=== PATIENT | male | born 1935 | race Caucasian/White ===

== ENCOUNTER 2018-03-19 08:57 | Emergency (ER) | payer OTHER, SELFPAY ==
[2018-03-19 09:22] VITALS: BP 138/89; PULSE 63; RESP 18; TEMP 36.4; O2SAT 93
--- NOTE | 2018-03-19 09:49 | DI.RAD_ITS ---
SYMPTOM/DIAGNOSIS: LATERAL HIP PAIN LEFT HIP AND PELVIS: Comparison is made with 08/01/16. There are again seen post surgical changes of a right hip replacement. In the left hip, minimal degenerative changes are noted. No acute fracture or dislocation is seen. The sacroiliac joints and symphysis pubis are intact. Moderate degenerative changes are seen in the lower lumbar spine. The soft tissues are unremarkable. IMPRESSION: No acute abnormality.
--- NOTE | 2018-03-19 09:51 | W.ED.GENAD ---
Discharge Plan Disposition Patient Disposition: HOME Condition: Fair Discharge Details Chief Complaint: Orthopedic Clinical Impression: Bursitis Primary Care Provider: Cecil Calixto ED Provider: Mellisa Mcpherson Home Meds and New Rx's Prescriptions: Continue mirtazapine 30 MG tablet,disintegrating 30 mg PO DAILY RF: 0 atorvastatin [Lipitor] 10 MG tablet 20 mg PO DAILY RF: 0 gabapentin 400 MG capsule 400 mg PO TID RF: 0 levothyroxine 137 MCG tablet 137 mcg PO DAILY@0730 RF: 0 quinapril [Accupril] 10 MG tablet 10 mg PO DAILY RF: 0 atenolol 50 MG tablet 50 mg PO DAILY RF: 0 alprazolam 0.25 MG tablet 0.25 mg PO QID RF: 0 ranitidine HCl [Zantac] 150 MG tablet 150 mg PO BID RF: 0 aspirin [Aspir-81] 81 mg Tablet,Delayed Release (Dr/Ec) 81 mg PO DAILY RF: 0 sertraline 100 mg Tablet 200 mg PO DAILY RF: 0 Discharge Instructions Instructions: Hip Bursitis (ED) Additional Instructions: Encourage rest ice to lateral aspect of your left hip. Tylenol and/or ibuprofen as needed for discomfort. You may try topical patches such as Salonpas or Lidoderm patches. Please keep your upcoming appointment with orthopedics. You may call them to see if they have any sooner availability. If you develop fever/chills, rash, redness, increased pain, difficulty ambulating or the new/worsening symptoms please seek care urgently once again Referrals: Cristian Masterson MD [ [facility] STAFF PHYSICIAN] - ([phone]) Cecil Calixto [Primary Care Provider] - Medical Decision Making Patient is an 82-year-old male presenting today with chief complaint of left hip pain. Initially, patient had been feeling that the pain was fairly generalized about the heaviness actually indicating the anterior aspect of the thigh is area of maximal discomfort. However, he does not experience any pain when immobilized. I did ambulate the patient about the room and at that point the patient was able to pinpoint the pain over the greater trochanter. Patient is full range of motion. No ecchymosis, erythema or deformity. No shortening or rotational deformity noted. Patient is point tender, and primarily concerned for bursitis. However, the patient does report that his underwent surgery recently and he has not been exerting himself more recently. I feel that with this change in activity level and his age imaging is appropriate. He has not taken anything as of yet for his discomfort. Plan to treat with Tylenol, ibuprofen and Lidoderm patch. Patient reports that he is no longer taking his Plavix, was advised to stop by physician. States he is currently taking baby aspirin daily X-ray reviewed by radiologist no acute bony abnormality noted Discussed findings of the imaging with the patient. Advised that this again, is likely bursitis. I encouraged use of anti-inflammatories as well as topical patches. Given the patient's age, I do not feel he should be on anti-inflammatories long-term but in the short interim this will greatly help with his discomfort and hopefully the source of his discomfort. He already has an appointment with orthopedics next week. Advised heat or ice to affected area. We discussed new/worsening symptoms when to seek care urgently once again. All the questions and concerns were addressed and he is in agreement with this plan. HPI General Mode of arrival: wheelchair. Date/Time Provider Initiated Documentation: 03/19/18 09:10. Limitations to Documentation: no limitations. Information obtained by: patient. History of Present Illness 82 year old M presents to the emergency department with the chief complaint of left hip pain, described as moderate, with intensity rated at 8. Quality is described as aching, and is localized to the left and lower extremity. Patient reports no radiation. Patient started experiencing this day(s) (4) and it has been constant. Immobilization improves symptom(s), (no pain when still) Movement worsens symptoms . Patient notes cough (reprots that he has chronic cough); denies chest pain, fever/chills, headaches, malaise, nausea/vomiting, rash, shortness of breath and weakness. Patient did receive the following treatments prior to arrival, none Related Data Home Medications Medication Instructions Recorded Confirmed atenolol 50 mg PO DAILY 11/17/12 03/19/18 levothyroxine 137 mcg PO DAILY@0730 11/17/12 03/19/18 quinapril [Accupril] 10 mg PO DAILY 11/17/12 03/19/18 atorvastatin [Lipitor] 20 mg PO DAILY tab-cap 05/27/13 03/19/18 gabapentin 400 mg PO TID tab-cap 05/27/13 03/19/18 mirtazapine 30 mg PO DAILY tab-cap 05/27/13 03/19/18 alprazolam 0.25 mg PO QID 07/17/13 03/19/18 ranitidine HCl [Zantac] 150 mg PO BID 07/17/13 03/19/18 aspirin [Aspir-81] 81 mg PO DAILY 03/19/18 03/19/18 sertraline 200 mg PO DAILY 03/19/18 03/19/18 Allergies Allergy/AdvReac Type Severity Reaction Status Date / Time quetiapine fumarate Allergy Severe Psychosis Unverified 03/19/18 09:32 [From Seroquel] General Stated Complaint: Orthopedic MUKESH: 3 Review of Systems Constitutional Reports as per HPI and Denies weakness Cardiovascular Reports as per HPI Respiratory Reports as per HPI Musculoskeletal Reports as per HPI, Denies numbness and Denies tingling Integumentary/Breasts Reports as per HPI Neurologic Denies numbness, Denies tingling and Denies weakness PFSH Family History Mother Heart disease Father Heart disease Other Personal history of malignant neoplasm Medical History Anxiety Aortic valve stenosis Chronic obstructive lung disease Depression Essential hypertension Hypothyroidism Osteoarthritis Polymyalgia rheumatica Polyp of colon Tardive dyskinesia Social History Smoking/Tobacco Use Status: Current every day Surgical History Appendectomy Excision, Pilonidal Cyst Thyroid Exam Const General: cooperative, healthy appearing, comfortable, no acute distress and well developed Nutritional Appearance: average body habitus and well nourished Orientation: alert and awake Resp Effort & Inspection: normal respiratory effort, able to speak in complete sentences and no respiratory distress Auscultation: clear to auscultation bilaterally, no rales, no rhonchi and no wheezes Cardio Rate: regular rate Rhythm: regular rhythm Heart Sounds: murmur systolic GI Inspection: normal to inspection Palpation: no guarding and nontender Skin General skin exam: no rashes or lesions noted Lesions: no lesions Rashes: no rashes Trauma: no lacerations or abrasions Wounds: no wounds Neuro General: alert and awake Cognition: normal cognition Speech: speech normal Gait: normal gait Motor: muscle tone normal throughout and strength 5/5 throughout Sensory Exam: no sensory deficits noted Extrem Left lower extremity: full ROM, normal capillary refill, no joint enlargement and hip/thigh Details: tenderness Location: of the hip (point tender over the greater trochanter) Location: laterally and normal ROM; no swelling, no abrasions, no lacerations, no ecchymosis, no crepitus, no deformity and no unusual warmth; no cyanosis and no edema Psych Appearance: grossly normal and well kempt Mental Status: mental status grossly normal Speech and Movement: speech and movement normal Course Vital Signs Temperature 36.4 C L 03/19/18 09:22 Pulse 63 03/19/18 09:22 Respiratory Rate 18 03/19/18 09:22 Blood Pressure 138/89 03/19/18 09:22 Pulse Oximetry 93 L 03/19/18 09:22 Temperature 36.4 C L 03/19/18 09:22 Temperature Source Temporal Artery Scan 03/19/18 09:22 Pulse 63 03/19/18 09:22 Respiratory Rate 18 03/19/18 09:22 Respiratory Effort Non-Labored 03/19/18 09:26 Blood Pressure 138/89 03/19/18 09:22 Blood Pressure Position Sitting 03/19/18 09:22 Pulse Oximetry 93 L 03/19/18 09:22 Oxygen Delivery Method Room Air 03/19/18 09:22 Oxygen Flow Rate 0 03/19/18 09:22 Pain Level 8 03/19/18 09:28 Comment 03/19/18 09:22
[2018-03-19] MEDS: Acetaminophen 325 MG TAB 650 MG PO (09:55)
[2018-03-19] MEDS: Ibuprofen 600 MG TAB PO (09:55)
[2018-03-19] MEDS: Lidocaine 5% Patch 1 PATCH TP (09:56)
--- NOTE | 2018-03-19 09:59 | ED.GENADUL_ITS ---
Discharge Plan Disposition Patient Disposition: HOME Condition: Fair Discharge Details Chief Complaint: Orthopedic Clinical Impression: Bursitis Primary Care Provider: Cecil Calixto ED Provider: Mellisa Mcpherson Home Meds and New Rx's Prescriptions: Continue mirtazapine 30 MG tablet,disintegrating 30 mg PO DAILY RF: 0 atorvastatin [Lipitor] 10 MG tablet 20 mg PO DAILY RF: 0 gabapentin 400 MG capsule 400 mg PO TID RF: 0 levothyroxine 137 MCG tablet 137 mcg PO DAILY@0730 RF: 0 quinapril [Accupril] 10 MG tablet 10 mg PO DAILY RF: 0 atenolol 50 MG tablet 50 mg PO DAILY RF: 0 alprazolam 0.25 MG tablet 0.25 mg PO QID RF: 0 ranitidine HCl [Zantac] 150 MG tablet 150 mg PO BID RF: 0 aspirin [Aspir-81] 81 mg Tablet,Delayed Release (Dr/Ec) 81 mg PO DAILY RF: 0 sertraline 100 mg Tablet 200 mg PO DAILY RF: 0 Discharge Instructions Instructions: Hip Bursitis (ED) Additional Instructions: Encourage rest ice to lateral aspect of your left hip. Tylenol and/or ibuprofen as needed for discomfort. You may try topical patches such as Salonpas or Lidoderm patches. Please keep your upcoming appointment with orthopedics. You may call them to see if they have any sooner availability. If you develop fever/chills, rash, redness, increased pain, difficulty ambulating or the new/worsening symptoms please seek care urgently once again Referrals: Cristian Masterson MD [ [facility] STAFF PHYSICIAN] - ([phone]) Cecil Calixto [Primary Care Provider] - Medical Decision Making Patient is an 82-year-old male presenting today with chief complaint of left hip pain. Initially, patient had been feeling that the pain was fairly generalized about the heaviness actually indicating the anterior aspect of the thigh is area of maximal discomfort. However, he does not experience any pain when immobilized. I did ambulate the patient about the room and at that point the patient was able to pinpoint the pain over the greater trochanter. Patient is full range of motion. No ecchymosis, erythema or deformity. No shortening or rotational deformity noted. Patient is point tender, and primarily concerned for bursitis. However, the patient does report that his underwent surgery recently and he has not been exerting himself more recently. I feel that with this change in activity level and his age imaging is appropriate. He has not taken anything as of yet for his discomfort. Plan to treat with Tylenol, ibuprofen and Lidoderm patch. Patient reports that he is no longer taking his Plavix, was advised to stop by physician. States he is currently taking baby aspirin daily X-ray reviewed by radiologist no acute bony abnormality noted Discussed findings of the imaging with the patient. Advised that this again, is likely bursitis. I encouraged use of anti-inflammatories as well as topical patches. Given the patient's age, I do not feel he should be on anti- inflammatories long-term but in the short interim this will greatly help with his discomfort and hopefully the source of his discomfort. He already has an appointment with orthopedics next week. Advised heat or ice to affected area. We discussed new/worsening symptoms when to seek care urgently once again. All the questions and concerns were addressed and he is in agreement with this plan. HPI General Mode of arrival: wheelchair . Date/Time Provider Initiated Documentation: 03/19/18 09:10 . Limitations to Documentation: no limitations . Information obtained by: patient . History of Present Illness 82 year old M presents to the emergency department with the chief complaint of left hip pain, described as moderate, with intensity rated at 8. Quality is described as aching, and is localized to the left and lower extremity. Patient reports no radiation. Patient started experiencing this day(s) (4) and it has been constant. Immobilization improves symptom(s), (no pain when still) Movement worsens symptoms . Patient notes cough (reprots that he has chronic cough); denies chest pain, fever/chills, headaches, malaise, nausea/ vomiting, rash, shortness of breath and weakness. Patient did receive the following treatments prior to arrival, none Related Data Home Medications Medication Instructions Recorded Confirmed atenolol 50 mg PO DAILY 11/17/12 03/19/18 levothyroxine 137 mcg PO DAILY@0730 11/17/12 03/19/18 quinapril [Accupril] 10 mg PO DAILY 11/17/12 03/19/18 atorvastatin [Lipitor] 20 mg PO DAILY tab-cap 05/27/13 03/19/18 gabapentin 400 mg PO TID tab-cap 05/27/13 03/19/18 mirtazapine 30 mg PO DAILY tab-cap 05/27/13 03/19/18 alprazolam 0.25 mg PO QID 07/17/13 03/19/18 ranitidine HCl [Zantac] 150 mg PO BID 07/17/13 03/19/18 aspirin [Aspir-81] 81 mg PO DAILY 03/19/18 03/19/18 sertraline 200 mg PO DAILY 03/19/18 03/19/18 Allergies Allergy/AdvReac Type Severity Reaction Status Date / Time quetiapine fumarate Allergy Severe Psychosis Unverified 03/19/18 09:32 [From Seroquel] General Stated Complaint: Orthopedic MUKESH: 3 Review of Systems Constitutional Reports as per HPI and Denies weakness Cardiovascular Reports as per HPI Respiratory Reports as per HPI Musculoskeletal Reports as per HPI, Denies numbness and Denies tingling Integumentary/Breasts Reports as per HPI Neurologic Denies numbness, Denies tingling and Denies weakness PFSH Family History Mother Heart disease Father Heart disease Other Personal history of malignant neoplasm Medical History Anxiety Aortic valve stenosis Chronic obstructive lung disease Depression Essential hypertension Hypothyroidism Osteoarthritis Polymyalgia rheumatica Polyp of colon Tardive dyskinesia Social History Smoking/Tobacco Use Status: Current every day Surgical History Appendectomy Excision, Pilonidal Cyst Thyroid Exam Const General: cooperative, healthy appearing, comfortable, no acute distress and well developed Nutritional Appearance: average body habitus and well nourished Orientation: alert and awake Resp Effort & Inspection: normal respiratory effort, able to speak in complete sentences and no respiratory distress Auscultation: clear to auscultation bilaterally, no rales, no rhonchi and no wheezes Cardio Rate: regular rate Rhythm: regular rhythm Heart Sounds: murmur systolic GI Inspection: normal to inspection Palpation: no guarding and nontender Skin General skin exam: no rashes or lesions noted Lesions: no lesions Rashes: no rashes Trauma: no lacerations or abrasions Wounds: no wounds Neuro General: alert and awake Cognition: normal cognition Speech: speech normal Gait: normal gait Motor: muscle tone normal throughout and strength 5/5 throughout Sensory Exam: no sensory deficits noted Extrem Left lower extremity: full ROM, normal capillary refill, no joint enlargement and hip/thigh Details: tenderness Location: of the hip (point tender over the greater trochanter) Location: laterally and normal ROM; no swelling, no abrasions, no lacerations, no ecchymosis, no crepitus, no deformity and no unusual warmth; no cyanosis and no edema Psych Appearance: grossly normal and well kempt Mental Status: mental status grossly normal Speech and Movement: speech and movement normal Course Vital Signs Temperature 36.4 C L 03/19/18 09:22 Pulse 63 03/19/18 09:22 Respiratory Rate 18 03/19/18 09:22 Blood Pressure 138/89 03/19/18 09:22 Pulse Oximetry 93 L 03/19/18 09:22 Temperature 36.4 C L 03/19/18 09:22 Temperature Source Temporal Artery Scan 03/19/18 09:22 Pulse 63 03/19/18 09:22 Respiratory Rate 18 03/19/18 09:22 Respiratory Effort Non-Labored 03/19/18 09:26 Blood Pressure 138/89 03/19/18 09:22 Blood Pressure Position Sitting 03/19/18 09:22 Pulse Oximetry 93 L 03/19/18 09:22 Oxygen Delivery Method Room Air 03/19/18 09:22 Oxygen Flow Rate 0 03/19/18 09:22 Pain Level 8 03/19/18 09:28 Comment 03/19/18 09:22
== END 2018-03-19 10:57 | disposition home or self-care (01) ==
PROVIDERS: Emergency Provider Physician Assistant; PCP Internal Medicine Sleep Medicine
DX: M70.72 Other bursitis of hip, left hip (principal)
CPT/HCPCS: 99283; 73502

== ENCOUNTER → 2018-03-27 10:04 | Outpatient (BNVA) | payer OTHER, SELFPAY | PROVIDERS: PCP Internal Medicine Sleep Medicine; Referring Provider Internal Medicine Sleep Medicine; Visit Provider Orthopaedic Surgery | DX: M70.62 Trochanteric bursitis, left hip (principal); J44.9 Chronic obstructive pulmonary disease, unspecified; I10 Essential (primary) hypertension | CPT/HCPCS: 99201; 99213 ==

== ENCOUNTER 2019-04-21 08:54 | Emergency (ER) | payer OTHER, SELFPAY ==
[2019-04-21 09:00] VITALS: BP 174/79; PULSE 74; RESP 16; TEMP 36.2; O2SAT 95
[2019-04-21] MEDS: Benzocaine 20% Gel 30 GM JAR MM (09:15)
--- NOTE | 2019-04-21 09:17 | ED.GENADUL_ITS ---
Discharge Plan Disposition Patient Disposition: HOME Condition: Fair Discharge Details Chief Complaint: DentalOral Clinical Impression: Dental infection Primary Care Provider: Spike Borjas ED Provider: eMllisa Mcpherson Home Meds and New Rx's Prescriptions: New amoxicillin-pot clavulanate [Augmentin] 875-125 mg tablet 1 tab PO BID 7 Days Qty: 14 RF: 0 Continued mirtazapine 30 MG tablet,disintegrating 30 mg PO DAILY RF: 0 atorvastatin [Lipitor] 10 MG tablet 20 mg PO DAILY RF: 0 gabapentin 400 MG capsule 400 mg PO TID RF: 0 levothyroxine 137 MCG tablet 137 mcg PO DAILY@0730 RF: 0 quinapril [Accupril] 10 MG tablet 10 mg PO DAILY RF: 0 atenolol 50 MG tablet 50 mg PO DAILY RF: 0 alprazolam 0.25 MG tablet 0.25 mg PO QID RF: 0 ranitidine HCl [Zantac] 150 MG tablet 150 mg PO BID RF: 0 aspirin [Aspir-81] 81 mg Tablet,Delayed Release (Dr/Ec) 81 mg PO DAILY RF: 0 sertraline 100 mg Tablet 200 mg PO DAILY RF: 0 Discharge Instructions Instructions: Dental Abscess (ED) Additional Instructions: Encourage hydration. You may use Tylenol and/or ibuprofen as needed for discomfort. You may continue to use the Hurricaine gel topically every 6 hours as needed. Please take the antibiotics as prescribed. Even if symptoms improve, please take the entire course. You have an appointment with your dentist on 04/29/19 at 12:15PM. If you cannot make this appointment, please call the office. If you develop fever/chills, increased pain, increased swelling or other new/worsening symptoms please seek care urgently once again. Referrals: Spike Borjas [Primary Care Provider] - Medical Decision Making Patient is an 83 year old male with hx of anxiety, aortic valve stenosis, COPD, depression, HTN, hypothyroidism, presenting today with c/c of left lower dental pain. Reports that pain began 4 days ago and has progressively been worsening. Began noting swelling yesterday. Patient has lower dentures but still has intact, shortened and darkened teeth intermitently in lower jaw under the dentures. He indicates cassidy #19 tooth as area of pain. Patient has soft tissue swelling along he buccal side. No lingual sided pain or swelling, oropharynx otherwise normal. Patient appears nontoxic. No area of fluctuance on exam or pocket of fluid noted on US. Plan to place patient on antibiotics. I will co ntact dentist regarding overriding denture and if he should continue with this. Contacted dentist, they advised that if patient stopped using his partial, it may not be able to fit within a few days and for patient to continue if tolerable. Plan to begin the patient on antibiotics. Discussed this plan with the patient who voiced understanding and is in agreement. Patient specifically questioned pain medication, however, I am concerned regarding the patient's age and adverse reactions with opiates. I feel the patient would better be served with Tylenol, ibuprofen and topical analgesics such as Hurricaine gel. He was given her cane gel here. Encourage hydration. He was given return precautions. All his questions and concerns were addressed and he is in agreement this plan. 04/29/19 at 12:15PM [facility] General Mode of arrival: ambulatory . Date/Time Provider Initiated Documentation: 04/21/19 08:59 . Limitations to Documentation: no limitations . Information obtained by: patient and RN notes reviewed . History of Present Illness 83 year old M presents to the emergency department with the chief complaint of left lower dental pain, described as moderate, with intensity rated at 7. Quality is described as aching, and is localized to the face and mouth. Patient reports no radiation. Patient started experiencing this day(s) (4) and it has been constant. No relieving factors improve symptom(s), No exacerbating factors reported . Patient notes no other symptoms.; denies fever/chills, headaches, loss of appetite, nausea/vomiting and rash. Patient did receive the following treatments prior to arrival, none Related Data Home Medications Medication Instructions Recorded Confirmed atenolol 50 mg PO DAILY 11/17/12 03/27/18 levothyroxine 137 mcg PO DAILY@0730 11/17/12 03/27/18 quinapril [Accupril] 10 mg PO DAILY 11/17/12 03/27/18 atorvastatin [Lipitor] 20 mg PO DAILY tab-cap 05/27/13 03/27/18 gabapentin 400 mg PO TID tab-cap 05/27/13 03/27/18 mirtazapine 30 mg PO DAILY tab-cap 05/27/13 03/27/18 alprazolam 0.25 mg PO QID 07/17/13 03/27/18 ranitidine HCl [Zantac] 150 mg PO BID 07/17/13 03/27/18 aspirin [Aspir-81] 81 mg PO DAILY 03/19/18 03/27/18 sertraline 200 mg PO DAILY 03/19/18 03/27/18 amoxicillin-pot clavulanate 1 tab PO BID 7 Days #14 tab 04/21/19 [Augmentin] Previous Rx's Medication Instructions Recorded amoxicillin-pot clavulanate 1 tab PO BID 7 Days #14 tab 04/21/19 [Augmentin] Allergies Allergy/AdvReac Type Severity Reaction Status Date / Time quetiapine fumarate Allergy Severe Psychosis Verified 04/21/19 09:02 [From Seroquel] General Stated Complaint: DentalOral MUKESH: 5 Review of Systems Constitutional Constitutional: Reports as per HPI, Denies chills, Denies fatigue, Denies fever(s), Denies headache(s) and Denies poor appetite Eyes Eyes: Denies change in vision and Denies irritation ENT Ears, Nose, Mouth, and Throat: Reports as per HPI, Reports dental pain, Denies dysphagia, Denies dizziness, Denies dry mouth, Denies ear discharge, Denies otalgia, Reports facial pain, Denies headache(s), Denies hoarseness, Denies lip swelling, Denies nasal congestion, Denies odynophagia and Denies sore throat Cardiovascular Cardiovascular: Reports as per HPI and Denies chest pain Respiratory Respiratory: Reports as per HPI and Denies cough Gastrointestinal Gastrointestinal: Reports as per HPI, Denies dysphagia, Denies nausea, Denies odynophagia and Denies vomiting Integumentary/Breasts Skin/Breast: Reports as per HPI, Denies erythema, Denies rash and Denies skin pain Neurologic Neurologic: Reports as per HPI, Denies dizziness and Denies headache(s) Endocrine Endocrine: Denies fatigue Allergic/Immunologic Allergic/Immunologic: Denies lip swelling PFSH Family History Mother Heart disease Father Heart disease Other Personal history of malignant neoplasm Social History Smoking/Tobacco Use Status: Current every day Alcohol Intake: never Drug use: Never Substance use type: does not use Do you feel safe at home: Yes Do you feel safe in your relationship?: Yes Exam Const General: cooperative, healthy appearing, comfortable, no acute distress, well developed and well groomed Nutritional Appearance: average body habitus and well nourished Orientation: alert and awake [facility] Head: normal to inspection, normocephalic and atraumatic Ears: hearing grossly normal bilaterally, external ears normal and TM's normal bilaterally General nose exam: external nose normal and nares normal Face and sinus: abnormal facial exam, sinuses nontender and face asymmetric (Left lower facial swelling) Face images: 1. Area of facial swelling, no fluctuance. No pocket of fluid noted on US. No erythema or warmth. No opening. Corresponds with pain at the #14 tooth Mouth: lip normal and tongue normal Teeth and gingiva: poor dentition Throat: posterior oropharynx normal, tonsils normal and uvula midline Eyes General: appearance normal, both eyes and all related structures Neck Neck: normal visual inspection, full ROM, no lymphadenopathy, supple and no anterior neck swelling Resp Effort & Inspection: normal respiratory effort, able to speak in complete sentences and no respiratory distress Auscultation: clear to auscultation bilaterally, no rales, no rhonchi and no wheezes Cardio Rate: regular rate Rhythm: regular rhythm Heart Sounds: S1 normal and S2 normal Skin General skin exam: no rashes or lesions noted Trauma: no lacerations or abrasions Neuro General: alert and awake Cognition: normal cognition Speech: speech normal Gait: normal gait Psych Appearance: grossly normal and well kempt Mental Status: mental status grossly normal Speech and Movement: speech and movement normal Course Vital Signs Vital signs: Vital Signs Temperature 36.2 C L 04/21/19 09:00 Pulse 74 04/21/19 09:00 Respiratory Rate 16 04/21/19 09:00 Blood Pressure 174/79 H 04/21/19 09:00 Pulse Oximetry 95 04/21/19 09:00 Temperature 36.2 C L 04/21/19 09:00 Temperature Source Temporal Artery Scan 04/21/19 09:00 Pulse 74 04/21/19 09:00 Respiratory Rate 16 04/21/19 09:00 Respiratory Effort Non-Labored 04/21/19 09:00 Blood Pressure 174/79 H 04/21/19 09:00 Blood Pressure Position Sitting 04/21/19 09:00 Pulse Oximetry 95 04/21/19 09:00 Oxygen Delivery Method Room Air 04/21/19 09:00 Oxygen Flow Rate 0 04/21/19 09:00 Pain Level 7 04/21/19 09:00
== END 2019-04-21 09:50 | disposition home or self-care (01) ==
PROVIDERS: Emergency Provider Physician Assistant; PCP Internal Medicine
DX: R68.84 Jaw pain (principal); K04.7 Periapical abscess without sinus; R22.0 Localized swelling, mass and lump, head; J44.9 Chronic obstructive pulmonary disease, unspecified; F17.210 Nicotine dependence, cigarettes, uncomplicated; I10 Essential (primary) hypertension
CPT/HCPCS: 99283

== ENCOUNTER 2019-11-05 10:20 | Outpatient (CLI) | payer OTHER, SELFPAY ==
--- NOTE | 2019-11-05 10:00 | DI.RAD_ITS ---
EXAM: XR LUMBAR SPINE AP, LAT CLINICAL HISTORY: leg pain. TECHNIQUE: 2D digital imaging was performed. COMPARISON: CR RT HIP COMPLETE AP PELVIS from 08/01/2016 CR CHEST 2 VIEWS PA,LAT from 01/09/2017 CR XR hip LT complete AP pelvis from 03/19/2018 FINDINGS: BONES: There is a stable mild compression of the superior endplate of L1. Endplate osteophytes are s een throughout. There is moderate narrowing of the L4-5 disc space and moderate to severe narrowing of the L5-S1 disc space. There are prominent facet joint degenerative changes at L4-5 and L5-S1. Th e aorta and proximal iliac arteries are calcified and appear normal in diameter. A right hip prosthe sis is seen. Degenerative changes are also noted at the inferior SI joints. ALIGNMENT: Lumbar spinal alignment is within normal limits. SOFT TISSUE: Normal. IMPRESSION: Stable mild L1 compression fracture. Degenerative disc changes and facet degenerative changes, great est at L4-5 and L5-S1. DATA REPOSITORY: RADIATION DOSE DELIVERED:
== END 2019-11-05 10:40 ==
PROVIDERS: PCP Internal Medicine; Referring Provider Internal Medicine; Visit Provider Orthopaedic Surgery
DX: M47.817 Spondylosis without myelopathy or radiculopathy, lumbosacral region (principal); M51.37 Other intervertebral disc degeneration, lumbosacral region; M79.604 Pain in right leg; M79.605 Pain in left leg; M48.56XD Collapsed vertebra, not elsewhere classified, lumbar region, subsequent encounter for fracture with routine healing; M48.00 Spinal stenosis, site unspecified; I10 Essential (primary) hypertension; J44.9 Chronic obstructive pulmonary disease, unspecified; F17.210 Nicotine dependence, cigarettes, uncomplicated; F32.9 Major depressive disorder, single episode, unspecified
CPT/HCPCS: 99214; 72100

== ENCOUNTER 2019-12-23 09:27 | Emergency (ER) | payer OTHER, SELFPAY ==
--- NOTE | 2019-12-23 09:31 | W.ED.GENAD ---
Discharge Plan Disposition Patient Disposition: HOME Condition: Stable Discharge Details Chief Complaint: GenMedical Clinical Impression: Ambulatory dysfunction Primary Care Provider: Spike Borjas ED Provider: Mellisa Mcpherson Home Meds and New Rx's Prescriptions: Continued mirtazapine 30 MG tablet,disintegrating 15 mg PO .QHS RF: 0 atorvastatin [Lipitor] 10 MG tablet 20 mg PO DAILY RF: 0 gabapentin 400 MG capsule 400 mg PO TID RF: 0 levothyroxine 137 MCG tablet 175 mcg PO DAILY@0730 RF: 0 atenolol 50 MG tablet 25 mg PO DAILY RF: 0 ranitidine HCl [Zantac] 150 MG tablet 150 mg PO BID RF: 0 sertraline 100 mg Tablet 200 mg PO DAILY RF: 0 clonazepam 1 mg tablet 1 mg PO BID RF: 0 fluticasone propionate 50 mcg/actuation spray,suspension 2 spray INTRANASAL DAILY RF: 0 Bevespi Aerosphere 9-4.8 mcg HFA aerosol inhaler 2 puff INHALATION BID RF: 0 Discharge Instructions Additional Instructions: Please continue to use your walker. Take your time, particularly when going from a sitting to standing position, and make sure steady yourself before beginning to walk. Please consider physical therapy has had been referred by primary care. We will continue seen contact your primary care. If you do not hear from them in the next day or 2, please call to discuss referral to MRI. Ref[place] been [place] [facility] [place] If you develop fever/chills, increased pain, sensation changes, change in your bowel or bladder habits or other new/worsening symptoms please seek care urgently once again. Referrals: Spike Borjas [Primary Care Provider] - Discharge Data Discharge Date/Time-TO BE ENTERED AT DEPARTURE: 12/23/19 12:00 Medical Decision Making <KATIA Muniz - Last Filed: 12/24/19 23:03> Patient is a pleasant 83 year old male, accompanied by his , with c/c of gait instability. They report that patient has had difficulty walking, particularly long distances, for the past 2 years. They state that this has worsening over the past month. He states that while he may need to steady himself when he first gets up, he typically does well for short distances. However, after walking for a more extended time, such as walking in a store or walking in from the parking lot, his legs will get fatigued. He denies any pain in his legs. No change in bowel or bladder habits. States that he was seen by orthopedics with negative low back x-rays. is concerned that his posture has been worsening over time. He was seen by his PCP for this last month. They present today requesting MRI. They advise that they contacted PCP who recommended he come to ED for MR with plan to then refer to medical staff specialist. Patient had been referred to PT but has not been going secondary to his difficulty with mobility. Reviewed previous records. Patient was seen by orthopedics 2 months ago. At that time, Ulysses has had bilateral leg pain that is been going on for many months now, and it appears to be coming from his spine. This is further proven by the fact that when he flexes at the waist in a hunched over position he gets some relief from his symptoms. He also may have exacerbation of pain symptoms from his depression. It is difficult to keep him on task during this visit as he is infatuated by how unhappy he is in his current situation. Given this added complication, Dr. Masterson feels as though a medication such as Cymbalta might be a good option in order to not only help him with his depression, this can also help with pain that may be a manifestation of his depression. Dr. Masterson suggested that he talk to his PCP Dr. Borjas [place] [facility] [place] about starting a medication like this. He will follow-up with us as needed. On exam, patient is resting comfortably. He is reading in his paper. He is good mobility about the bed. No midline or paraspinal tenderness. He does indicate the right lower spine is area of discomfort but ambulance with palpation or range of motion. He has negative straight leg raise bilaterally. 5 out of 5 strength. No saddle paresthesias. Normal reflexes. Patient was able to ambulate to the bathroom unassisted with a walker. Does quite well with this. Does feel more steady with a walker given here as it does not have wheels. His does report that she will purchase one like this for him. We discussed that this point, there is no emergent change in his symptoms. He does seem to be doing fairly well at home despite his deterioration. Has been trying to set up safeguards at home. Is doing quite well with walker today. Plan to consult with the patient's primary care provider to discuss recommendation of emergent MRI. Was unable to reach the patient's primary care provider. I did call multiple times at [facility] without success. Patient is not requiring any medications for discomfort. He is remained comfortable. We did discuss continuing to wait versus discharge home and close follow-up. He would prefer discharge home at this point. Patient and I did discuss treatment options. We discussed pain management techniques. I did encourage he reconsider physical therapy is likely be of great benefit to him. He was given strict return precautions. We did discuss fall prevention techniques. Encourage close follow-up with primary care. Will refer to spine center at [facility] where they have wanted to be seen. All of their questions and concerns were addressed and they are in agreement with this plan. After the patient's discharge, I was able to speak with patient's primary care provider's nurse. They will refer patient for an MRI. I have also referred him to the spine center at [facility]. <Frantz Pak MD - Last Filed: 12/23/19 10:24> I had a [id number] encounter with the patient. I evaluated the patient. I discussed case with RADIO COMMUNICATION COORDINATOR/PA and I reviewed RADIO COMMUNICATION COORDINATOR/PA note and agree with note as documented. HPI <KATIA Muniz - Last Filed: 12/24/19 23:03> General Mode of arrival: wheelchair. Date/Time Provider Initiated Documentation: 12/23/19 09:31. Limitations to Documentation: no limitations. Information obtained by: patient, family (), RN notes reviewed and old records reviewed. HPI Narrative: Patient is a pleasant 83 year old male, accompanied by his , with c/c of difficulty with ambulation. STates that this started about 2 years ago and has been progressively worsening. states that it has been a much more notable decline over the past month. Patient states that when he first stands he has difficulty with his balance. Once he is able to stabilize himself, he is able to walk. Has been using a walker x 1 month around his home. STates that with long distances his legs become fatigued but denies any pain in his legs. No numbness or tingling. Feels better when hunched over some which is concerning for his . Has been seen by PCP who recommended PT. However, as the patient has not been walking well patient and did not feel that PT was appropriate for him. They were also recommended antidepressant by orthopedics but patient and family did not feel that this was an accurate diagnosis. states that she sees daily decline. Related Data Home Medications Medication Instructions Recorded Confirmed atenolol 25 mg PO DAILY 11/17/12 12/23/19 levothyroxine 175 mcg PO DAILY@0730 11/17/12 12/23/19 atorvastatin [Lipitor] 20 mg PO DAILY tab-cap 05/27/13 12/23/19 gabapentin 400 mg PO TID tab-cap 05/27/13 12/23/19 mirtazapine 15 mg PO .QHS tab-cap 05/27/13 12/23/19 ranitidine HCl [Zantac] 150 mg PO BID 07/17/13 12/23/19 sertraline 200 mg PO DAILY 03/19/18 12/23/19 Bevespi Aerosphere 2 puff INHALATION BID 12/23/19 12/23/19 clonazepam 1 mg PO BID 12/23/19 12/23/19 fluticasone propionate 2 spray INTRANASAL DAILY 12/23/19 12/23/19 Allergies Allergy/AdvReac Type Severity Reaction Status Date / Time quetiapine fumarate Allergy Severe Psychosis Verified 12/23/19 09:43 [From Seroquel] General MUKESH: 5 Review of Systems <KATIA Muniz - Last Filed: 12/24/19 23:03> Constitutional Constitutional: Reports as per HPI, Denies chills, Denies fatigue, Denies fever(s), Reports frequent falls, Denies headache(s) and Reports weakness (Noted with prolonged times of ambulation) Eyes Eyes: Denies change in vision ENT Ears, Nose, Mouth, and Throat: Denies headache(s) Cardiovascular Cardiovascular: Denies chest pain, Denies dyspnea and Denies dyspnea on exertion Respiratory Respiratory: Denies cough, Denies dyspnea and Denies dyspnea on exertion Gastrointestinal Gastrointestinal: Denies abdominal pain, Denies change in bowel habits and Denies fecal incontinence Genitourinary Genitourinary: Reports as per HPI, Denies urinary hesitancy and Denies urinary incontinence Musculoskeletal Musculoskeletal: Reports as per HPI, Reports abnormal gait, Reports back pain, Denies muscle weakness, Denies numbness, Denies radiating pain into limb, Reports stiffness and Denies tingling Integumentary/Breasts Skin/Breast: Reports as per HPI and Denies rash Neurologic Neurologic: Reports as per HPI, Reports abnormal gait, Reports frequent falls, Denies headache(s), Denies localized weakness, Denies numbness, Denies radicular pain, Denies sensory deficit, Denies tingling, Denies paresthesias and Reports weakness (Noted with prolonged times of ambulation) Endocrine Endocrine: Denies fatigue PFSH <KATIA Muniz - Last Filed: 12/24/19 23:03> Medical History (Updated 12/23/19 @ 11:34 by KATIA Muniz) Anxiety Aortic valve stenosis Chronic obstructive lung disease Depression Essential hypertension Hypothyroidism Osteoarthritis Polymyalgia rheumatica Polyp of colon Tardive dyskinesia Surgical History Appendectomy Excision, Pilonidal Cyst Thyroid Family History Mother Heart disease Father Heart disease Other Personal history of malignant neoplasm Social History Smoking/Tobacco Use Status: Current every day Tobacco Type: cigarettes Smoking packs per day: 0.5 Smoking cigarettes per day: 10.0 Alcohol Intake: never Drug use: Never Substance use type: does not use Current gender identity: male Do you feel safe at home: Yes Do you feel safe in your relationship?: Yes Exam <KATIA Muniz - Last Filed: 12/24/19 23:03> Const General: cooperative, healthy appearing, comfortable, no acute distress, well developed and well groomed Nutritional Appearance: average body habitus and well nourished Orientation: alert and awake Eyes General: appearance normal, both eyes and all related structures Neck Neck: normal visual inspection, full ROM, no lymphadenopathy and no meningeal signs Resp Effort & Inspection: normal respiratory effort and able to speak in complete sentences Auscultation: clear to auscultation bilaterally, no rales, no rhonchi and no wheezes Cardio Rate: regular rate Rhythm: regular rhythm Heart Sounds: S1 normal and S2 normal Back/Spine/Pelvis Back: no CVA tenderness Cervical Spine: normal cervical lordosis, cervical ROM normal, No cervical spinal tenderness and No step off deformity Thoracic/Lumbar Spine: thoracic and lumbar spine normal to inspection, straight leg raise negative bilaterally, No bend over test abnormal, No pain with thoraco-lumbar ROM, No paraspinal tenderness, No thoraco-lumbar ROM limited, No thoraco-lumbar spasm, No thoracic spinal tenderness, No lumbar spinal tenderness and No straight leg raise positive Pelvis: no pain with anterior-posterior compression and no pain with lateral compression Sacroiliac joints: bilaterally nontender Sacrum: no tenderness Skin General skin exam: no rashes or lesions noted Neuro General: patient alert and patient awake Cognition: normal cognition Speech: speech normal Gait: gait abnormal (ambulates well, unassisted with a walker) Motor: muscle tone normal throughout, strength 5/5 throughout, no movement abnormalities noted and no fasciculations Sensory Exam: no sensory deficits noted (no saddle paresthesias) DTR's: Rt Patellar: 2+, Lt Patellar: 2+, Rt Ankle: 2+ and Lt Ankle: 2+ Extrem General: normal to inspection, full ROM, capillary refill normal, no joint enlargement, no pedal edema, no calf tenderness and normal gait Psych Appearance: grossly normal and well kempt Mental Status: mental status grossly normal Speech and Movement: speech and movement normal
[2019-12-23 09:38] VITALS: BP 105/69; PULSE 72; RESP 16; TEMP 36.5; O2SAT 94
[2019-12-23 11:06] VITALS: BP 110/74; PULSE 82; RESP 20; O2SAT 96
--- NOTE | 2019-12-24 09:15 | CMPROGNOTE_ITS ---
- If Service Date Differs Date of service: 12/24/19 Time of Service: 09:15 Care Management Progress Note At the request of ED provider, CM coordinates a referral [place] [facility].
--- NOTE | 2019-12-24 09:15 | PDOC.ERCMPRO ---
- If Service Date Differs Date of service: 12/24/19 Time of Service: 09:15 Care Management Progress Note At the request of ED provider, CM coordinates a referral [place] [facility] [place] [place] [facility].
== END 2019-12-23 12:00 | disposition home or self-care (01) ==
PROVIDERS: Emergency Provider Physician Assistant; PCP Internal Medicine
DX: R26.81 Unsteadiness on feet (principal); I10 Essential (primary) hypertension; J44.9 Chronic obstructive pulmonary disease, unspecified; F17.210 Nicotine dependence, cigarettes, uncomplicated
CPT/HCPCS: 99282; 99283

== ENCOUNTER → 2020-02-02 13:04 | Outpatient (BNVA) | payer OTHER, SELFPAY | PROVIDERS: PCP Internal Medicine; Referring Provider Internal Medicine; Visit Provider Nurse Practitioner Gerontology | DX: N40.2 Nodular prostate without lower urinary tract symptoms (principal); R97.20 Elevated prostate specific antigen [PSA]; I10 Essential (primary) hypertension | CPT/HCPCS: 99204; 99215 ==

== ENCOUNTER → 2020-02-23 10:17 | Outpatient (BNVA) | payer OTHER, SELFPAY | PROVIDERS: PCP Internal Medicine; Referring Provider Internal Medicine; Visit Provider Urology | DX: N40.2 Nodular prostate without lower urinary tract symptoms (principal); R97.20 Elevated prostate specific antigen [PSA] | CPT/HCPCS: 99213; 99442 ==

== ENCOUNTER 2020-03-03 01:31 | Outpatient (CLI) | payer OTHER, SELFPAY ==
--- NOTE | 2020-03-03 | DI.MRI_ITS ---
EXAM: MR LUMBAR SPINE WO CLINICAL HISTORY: WEAKNESS BOTH LOWER EXTREMITIES,R29.898. TECHNIQUE: Multiplanar multisequence MRI of the Lumbar spine was performed. COMPARISON: CR XR LUMBAR SPINE AP, LAT from 11/05/2019 FINDINGS: Bones: The last intervertebral disc space is designated the L5/S1 level for the numbering purpose of this examination. There is an old L1 compression deformity. Alignment is satisfactory. Degenerativ e endplate signal changes are seen throughout the lumbar spine. Cord: The conus tip ends at the L1 level. It is of normal size and signal intensity. T12-L1: No disc herniations or bulges are present. No central spinal canal or neural foraminal stenos is. L1-2: No disc herniations or bulges are present. No central spinal canal or neural foraminal stenosis . L2-3: No focal disc herniation. There are hypertrophic changes of the facets and ligamentum flavum. These cause moderate central spinal canal stenosis. No significant neural foraminal stenosis. L3-4: There is a diffuse disc bulge. There are degenerative changes of the facets and hypertrophy of the ligamentum flavum. These all contribute to cause moderately severe central spinal canal stenosi s. There is moderate bilateral neural foraminal stenosis. L4-5: Mild diffuse disc bulge. No significant central spinal canal or neural foraminal stenosis. L5-S1: No disc herniations or bulges are present. Degenerative changes of the facets. No significant central spinal canal stenosis. Moderate right and mild left neural foraminal stenosis. Soft tissues: The visualized SI joints and sacrum are well maintained. The paraspinal soft tissues ar e unremarkable. Kidneys: Bilateral simple renal cysts. IMPRESSION: 1. Multilevel degenerative changes in the lumbar spine. The findings are most marked at L2-3 and L3- L4 where there is central spinal canal stenosis present. 2. Bilateral simple renal cysts. 3. Old L1 compression fracture deformity. DATA REPOSITORY:
== END 2020-03-03 01:51 ==
PROVIDERS: PCP Internal Medicine; Visit Provider Pain Medicine Interventional Pain Medicine
DX: M47.816 Spondylosis without myelopathy or radiculopathy, lumbar region (principal); N28.1 Cyst of kidney, acquired; M43.8X6 Other specified deforming dorsopathies, lumbar region; R29.898 Other symptoms and signs involving the musculoskeletal system
CPT/HCPCS: 72148

== ENCOUNTER 2020-04-13 01:50 | Outpatient (CLI) | payer OTHER, SELFPAY ==
--- NOTE | 2020-04-13 14:20 | DI.MRI_ITS ---
EXAM: MR BRAIN WO CLINICAL HISTORY: WORSENING ATAXIA,LE WEAKNESS,INTERMITTENT EXPRESSIVE APHASIA, ? CVA. TECHNIQUE: Multiplanar multisequence MRI of the brain was performed. CONTRAST MATERIAL: Noncontrast COMPARISON: MR MRI - BRAIN WO CONTRAST from 12/09/2012 FINDINGS: VENTRICLES AND EXTRA AXIAL SPACES: Normal in size and morphology for the patient's age. HEMORRHAGE: None. CEREBRAL PARENCHYMA: Moderate atrophy. Patchy areas of high signal in the white matter consistent wi th small vessel disease. The findings are slightly worse when compared with the previous exam. No f ocus of restricted diffusion to suggest acute infarct. No space-occupying lesion identified. MIDLINE SHIFT: None. BRAINSTEM/CEREBELLUM: Normal. VISUALIZED PARANASAL SINUSES/MASTOIDS: Mild mucosal thickening of ethmoid and maxillary sinuses. Min imal fluid inferior right mastoid . OTHER FINDINGS: Vascular flow voids are intact. The orbits are unremarkable. IMPRESSION: Atrophy and white matter changes of small vessel disease. No evidence infarct, mass or hemorrhage. DATA REPOSITORY:
== END 2020-04-13 02:10 ==
PROVIDERS: PCP Internal Medicine; Visit Provider Internal Medicine
DX: G31.89 Other specified degenerative diseases of nervous system (principal)
CPT/HCPCS: 70551

== ENCOUNTER 2021-05-26 13:01 | Outpatient (REF) | payer MEDICARE, SELFPAY ==
[2021-05-27 12:30] LABS: COVID-19 RT-PCR UVMMC Result Negative (Negative)
== END 2021-05-26 13:02 | disposition home or self-care (01) ==
LOC: LBN 13:01
PROVIDERS: PCP Internal Medicine; Visit Provider Physician Assistant Medical
DX: Z20.822 Contact with and (suspected) exposure to COVID-19 (principal); J02.9 Acute pharyngitis, unspecified
CPT/HCPCS: U0003; U0005

== ENCOUNTER 2021-09-27 11:28 | Emergency (ER) | payer MEDICARE, SELFPAY ==
[2021-09-27 11:34] VITALS: BP 147/71; PULSE 69; RESP 16; TEMP 36.4; O2SAT 95
--- NOTE | 2021-09-27 11:45 | DI.RAD_ITS ---
Exam(s) XR FEMUR LT EXAM: XR FEMUR LT CLINICAL HISTORY: pain left hip and femur. TECHNIQUE: 2D digital imaging was performed. COMPARISON: No exams were available for comparison FINDINGS: Two views-AP and lateral: Is no evidence of femur fracture. Mild degenerative changes in the hip joint noted. No osseous lesi ons. No obvious joint effusion in the knee. IMPRESSION: No fracture evident. DATA REPOSITORY: RADIATION DOSE DELIVERED:
--- NOTE | 2021-09-27 11:45 | DI.RAD_ITS ---
Exam(s) XR PELVIS AP EXAM: XR PELVIS AP CLINICAL HISTORY: left hip and leg pain. TECHNIQUE: 2D digital imaging was performed. COMPARISON: CR XR hip LT complete AP pelvis from 03/19/2018 FINDINGS: Single view Again noted is right hip prosthesis be unchanged from prior study. Mild degenerative changes noted i n the opposite left hip. No significant osseous lesions. No fractures evident. IMPRESSION: DATA REPOSITORY: RADIATION DOSE DELIVERED:
--- NOTE | 2021-09-27 12:57 | ED.GENADUL_ITS ---
Discharge Plan Disposition Patient Disposition: HOME Condition: Stable Discharge Details Clinical Impression: Left thigh pain Primary Care Provider: Spike Borjas ED Provider: Sabra Saenz Home Meds and New Rx's Prescriptions: Continued mirtazapine 30 MG tablet,disintegrating 15 mg PO .QHS 0RF atorvastatin [Lipitor] 10 MG tablet 20 mg PO DAILY 0RF gabapentin 400 MG capsule 400 mg PO TID 0RF levothyroxine 137 MCG tablet 175 mcg PO DAILY@0730 0RF Rx Instructions: 138 MCG DAILY atenolol 50 MG tablet 25 mg PO DAILY 0RF ranitidine HCl [Zantac] 150 MG tablet 150 mg PO BID 0RF sertraline 100 mg Tablet 200 mg PO DAILY 0RF clonazepam 1 mg tablet 1 mg PO BID 0RF Label Comments: TAKE ONE TABLET BY MOUTH TWICE A DAY NEEDED FOR ANXIETY fluticasone propionate 50 mcg/actuation spray,suspension 2 spray INTRANASAL DAILY 0RF Label Comments: USE 2 SPRAYS IN EACH NOSTRIL ONCE DAILY Bevespi Aerosphere 9-4.8 mcg HFA aerosol inhaler 2 puff INHALATION BID 0RF Label Comments: INHALE TWO PUFFS BY MOUTH TWICE A DAY No Action levofloxacin 500 mg tablet 500 mg PO DAILY Qty: 3 0RF Rx Instructions: Take 1 tab the day before the procedure, one the day of the procedure, and 1 tab the day after the procedure. Discharge Instructions Additional Instructions: Light stretching Follow-up with physical therapy Apply Voltaren gel which is [id number] Take Tylenol 650 mg every 6 hours as needed for pain, do not exceed 3 g in 1 day You may apply ice or heat whichever feels better 2 hours after application You may also take Motrin, no more than 400 mg every 6-8 hours Do not take for longer than 5 days Recheck with primary care physician on Sunday with persistent discomfort Return earlier should you have new or worsening complaints Referrals: Spike Borjas [Primary Care Provider] - Discharge Data Discharge Date/Time-TO BE ENTERED AT DEPARTURE: 09/27/21 13:04 Medical Decision Making Patient appears well His x-ray of hip and femur do not show acute abnormality I suspect symptoms are musculoskeletal in nature Referral to physical therapy Droperidol recommended Tylenol as needed for pain Neurovascularly intact, will use cane and walker at home for support No indication for CT imaging at this time as there is no trauma Patient is given low threshold to return should he have new or worsening complaints PCP recheck recommended in 24 to 48 hours Medical Records Medical records reviewed: Yes I reviewed the patient's medical records. Lab Data Lab results reviewed: Yes I reviewed the patient's lab results. HPI General Date/Time Provider Initiated Documentation: 09/27/21 11:28 . HPI Narrative: This 85-year-old gentleman presents with left femur pain started. Prior to arrival today. Denies any skin discoloration or injury. States the pain is alleviated at rest and seated and exacerbated with movement of his left leg and walking. Denies any back pain. Denies any groin numbness or tingling. Denies any strength or sensation change to his extremities. Denies any changes in bowel or bladder. Denies fever or chills. Denies history of IV drug abuse. Denies prior history of similar symptoms in past. Related Data Home Medications Medication Instructions Recorded Confirmed atenolol 50 mg tablet 25 mg PO DAILY 11/17/12 12/23/19 levothyroxine 137 mcg tablet 175 mcg PO DAILY@0730 11/17/12 12/23/19 atorvastatin 10 mg tablet (Lipitor) 20 mg PO DAILY tab-cap 05/27/13 12/23/19 gabapentin 400 mg capsule 400 mg PO TID tab-cap 05/27/13 12/23/19 mirtazapine 30 mg disintegrating 15 mg PO .QHS tab-cap 05/27/13 12/23/19 tablet ranitidine HCl 150 mg tablet 150 mg PO BID 07/17/13 12/23/19 (Zantac) sertraline 100 mg tablet 200 mg PO DAILY 03/19/18 09/27/21 clonazepam 1 mg tablet 1 mg PO BID 12/23/19 12/23/19 fluticasone propionate 50 2 spray INTRANASAL DAILY 12/23/19 12/23/19 mcg/actuation nasal spray,suspension glycopyrrolate 9 mcg-formoterol 2 puff INHALATION BID 12/23/19 12/23/19 4.8 mcg HFA aerosol inhaler (Bevespi Aerosphere) levofloxacin 500 mg tablet 500 mg PO DAILY #3 tab 02/04/20 02/04/20 Previous Rx's Medication Instructions Recorded levofloxacin 500 mg tablet 500 mg PO DAILY #3 tab 02/04/20 Allergies Allergy/AdvReac Type Severity Reaction Status Date / Time quetiapine fumarate Allergy Severe Psychosis Verified 09/27/21 11:38 [From Seroquel] General Stated Complaint: Orthopedic MUKESH: 4 Review of Systems All systems reviewed & are unremarkable except as noted in HPI and below PFSH All Active Problems (Updated 09/27/21 @ 13:01 by KATIA Neff) Left thigh pain (Acute) Sensorineural hearing loss of both ears (Acute) Prostate nodule (Acute) Elevated PSA (Acute) Spinal stenosis (Acute) Trochanteric bursitis (Acute) Tardive dyskinesia (Acute 05/27/13) Medical History (Updated 09/27/21 @ 13:01 by KATIA Neff) Anxiety Aortic valve stenosis Chronic obstructive lung disease Depression Essential hypertension Hypothyroidism Osteoarthritis Polymyalgia rheumatica Polyp of colon Tardive dyskinesia Surgical History Appendectomy Excision, Pilonidal Cyst Thyroid Family History Mother Heart disease Father Heart disease Other Personal history of malignant neoplasm Social History Smoking/Tobacco Use Status: Current every day Tobacco Type: cigarettes Smoking packs per day: 0.5 Smoking cigarettes per day: 10.0 Smoking risk assessment performed?: Yes Alcohol Intake: never Drug use: Never Substance use type: does not use Current gender identity: male Do you feel safe at home: Yes Do you feel safe in your relationship?: Yes Exam Const General: cooperative, comfortable and no acute distress Eyes Sclera: sclerae normal Chest Chest: normal inspection of the chest Resp Effort & Inspection: normal respiratory effort Auscultation: clear to auscultation bilaterally Cardio Rate: regular rate Rhythm: regular rhythm Other: Distal pulses intact GI Other: Nontender abdominal exam, no CVA tenderness, no abdominal bruit or pulsatile mass Skin General skin exam: no rashes or lesions noted Full body images: 1. no tenderness with palpation, no rashes or lesions Neuro General: patient alert and patient oriented x3 Other: Strength and sensation intact distally Extrem Other: Mild left And left upper leg tenderness, neuro sensation change, neurovascularly intact distally Course Vital Signs Vital signs: Vital Signs Temperature 36.4 C L 09/27/21 11:34 Pulse 69 09/27/21 11:34 Respiratory Rate 16 09/27/21 11:34 Blood Pressure 147/71 H 09/27/21 11:34 Pulse Oximetry 95 09/27/21 11:34 Temperature 36.4 C L 09/27/21 11:34 Pulse 69 09/27/21 11:34 Respiratory Rate 16 09/27/21 11:34 Respiratory Effort 09/27/21 11:40 Blood Pressure 147/71 H 09/27/21 11:34 Pulse Oximetry 95 09/27/21 11:34 Oxygen Delivery Method Room Air 09/27/21 11:34 Oxygen Flow Rate 0 09/27/21 11:34
[2021-09-27 12:58] VITALS: BP 142/66; PULSE 64; RESP 16; TEMP 37.2; O2SAT 95
== END 2021-09-27 13:04 | disposition home or self-care (01) ==
PROVIDERS: Emergency Provider Physician Assistant; PCP Internal Medicine
DX: M79.652 Pain in left thigh (principal); M25.552 Pain in left hip
CPT/HCPCS: 73552; 99284; 72170; 99283

== ENCOUNTER 2021-10-14 08:05 | Day surgery (SDC) | payer MEDICARE, SELFPAY ==
[2021-10-14] MEDS: Tropicam./Phenyleph. (1/2.5%) 5 ML BTL OD ×3 (08:24→08:34)
[2021-10-14 08:25] VITALS: BP 152/73; PULSE 71; RESP 18; TEMP 36.1; O2SAT 97
--- NOTE | 2021-10-14 08:43 | ANES.PREOP_ITS ---
General Info Date of Service Date Performed: 10/14/21 Height: 5 ft 9 in Weight: 82.4 kg Body Mass Index (BMI): 26.8 Surgical Procedure: Operation Date: 10/14/21 09:10 Proposed Procedure Side Surgeon p Cataract Extraction with IOL Implant Right Spike Avila MD Meds Allergies and Home Medications Allergies Allergy/AdvReac Type Severity Reaction Status Date / Time quetiapine fumarate Allergy Severe Psychosis Verified 10/14/21 08:16 [From Seroquel] Home Medication Medication Instructions Recorded atenolol 50 mg tablet 25 mg PO DAILY 11/17/12 levothyroxine 137 mcg tablet 175 mcg PO DAILY@0730 11/17/12 atorvastatin 10 mg tablet (Lipitor) 20 mg PO DAILY 05/27/13 gabapentin 400 mg capsule 400 mg PO TID 05/27/13 mirtazapine 30 mg disintegrating 15 mg PO .QHS 05/27/13 tablet sertraline 100 mg tablet 200 mg PO DAILY 03/19/18 clonazepam 1 mg tablet 1 mg PO BID 12/23/19 fluticasone propionate 50 2 spray intranasal DAILY 12/23/19 mcg/actuation nasal spray,suspension glycopyrrolate 9 mcg-formoterol 2 puff inhalation BID 12/23/19 4.8 mcg HFA aerosol inhaler (Bevespi Aerosphere) levofloxacin 500 mg tablet 500 mg PO DAILY #3 tabs 02/04/20 carbidopa 25 mg-levodopa 100 mg 2 tab PO TID 10/07/21 tablet (Sinemet) ketoconazole 2 % shampoo 1 applic topical USEASDIRECTD 10/07/21 ibuprofen 200 mg tablet 400 mg PO Q6H PRN 10/14/21 Current Visit Medications: Current Medications Generic Name Dose Route Start Last Admin Trade Name Freq PRN Reason Stop Dose Admin Acetaminophen 1,000 mg 10/14/21 06:00 Acetaminophen 500 Mg Tab PO Q4H PRN PRN Miscellaneous Medication 0 ml 10/14/21 06:00 Prednisolone 1%, Moxifloxacin 0.5%, Nepafenac 0.1% 5ml Btl OD DIRECTED [facility] Miscellaneous Medication 0 ml 10/14/21 06:00 10/14/21 08:34 Tropicam./Phenyleph. (1/2.5%) 5 Ml Btl OD 1 drp DIRECTED [facility] Administration Tetracaine HCl 0 ml 10/14/21 06:00 Tetracaine 0.5% 4 Ml Btl OD DIRECTED [facility] PFSH Active Problems Active Problems: Problem Status Onset Code Tardive dyskinesia 05/27/13 G24.01 Trochanteric bursitis M70.60 Spinal stenosis M48.00 Elevated PSA R97.20 Prostate nodule N40.2 Sensorineural hearing loss of both ears H90.3 Left thigh pain M79.652 Medical History Medical History Anxiety Aortic valve stenosis Per 10/05/21 H&P by [facility] PCP Dr. MOSQUERA: ...His murmur has changed today on exam and while he is overall asymptomatic, will obtain a TTE to assess the severity of his As to get a baseline valve area/ Chronic obstructive lung disease Depression Essential hypertension Hypothyroidism Osteoarthritis Parkinson disease Polymyalgia rheumatica Polyp of colon Tardive dyskinesia Surgical History Surgical History Appendectomy Excision, Pilonidal Cyst Thyroid Tobacco Smoking/Tobacco Use Status: Current every day Tobacco Type: cigarettes Smoking packs per day: 0.5 Alcohol Alcohol Intake: never Substance Use Substance use: Never Substance use type: does not use Vital Signs and Lab Results Vital Signs Most Recent Vital Signs in EMR: Most Recent Vital Signs Temp Pulse Resp BP Pulse Ox 36.1 C L 71 18 152/73 H 97 10/14/21 08:25 10/14/21 08:25 10/14/21 08:25 10/14/21 08:25 10/14/21 08:25 Lab Results Blood Type / Crossmatch: No Data to Display Complete Blood Count: No Data to Display Complete Metabolic Panel: No Data to Display Liver Function Panel: No Data to Display Coagulation Panel: No Data to Display Cardiac Panel: No Data to Display Arterial Blood Gas: No Data to Display Venous Blood Gas: No Data to Display Pancreas Panel: No Data to Display Thyroid Panel: No Data to Display Infectious Disease: No Data to Display Blood Cultures: No Data to Display Toxicology Panel: No Data to Display Anesthesia Assessment and Plan Anesthesia History Personal History: No History of Anesthesia Complications Family History: No Family History of Anesthesia Complications Exercise Tolerance Exercise Tolerance: Metabolic Equivalents>4 Pertinent Negatives Pertinent Negatives: No Symptoms of GERD and No Major Cardiovascular Symptoms or Complaints (10/05/21 Aortic Valve Stenosis ) Cardiac & Pulmonary Exam Cardiac Exam: Normal S1/S2 Heart Sounds Pulmonary Exam: Clear Bilateral Breath Sounds Implantable Cardiac Device Does patient have a Pacemaker or an ICD?: No Airway Exam Known Difficult Airway: No Mallampati Class: 1 Mouth Opening: Normal (> 3cm) Thyromental Distance: Greater than 3 cm Neck Range of Motion: Full ROM Neck Circumference: Thick Teeth Condition: Removable Dentures/Plates Upper and Removable Dentures/Plates Lower ASA Classification ASA Score: ASA 3 Emergency Case?: No NPO Status NPO Status: NPO Clears >2 hours, Solids >8 hours Anesthesia Plan Resuscitation Status: Full Code Anesthesia Technique: MAC Anesthesia Airway Planned: Natural Airway Monitors Used: Standard Monitors
[2021-10-14 08:44] VITALS: BMI 26.8
[2021-10-14] MEDS: Duovisc Viscoelastic System EACH 1 EACH (08:59)
[2021-10-14] MEDS: Balanced Salt Soln.-PLUS 500 ML BAG (08:59)
[2021-10-14] MEDS: Tetracaine 0.5% 4 ML BTL OD (08:59)
[2021-10-14] MEDS: Lidocaine 2% Jelly 6 ML SYR (09:00)
[2021-10-14] MEDS: Povidone-Iodine Ophth 30 ML BTL (09:02)
[2021-10-14 09:28] VITALS: BP 141/79; PULSE 65; RESP 17; TEMP 37; O2SAT 95
--- NOTE | 2021-10-14 09:30 | W.PM.DSUDISC ---
Discharge Plan Disposition Patient Disposition: HOME Condition: Good Discharge Details Attending Provider: Spike Avila Primary Care Provider: Spike Borjas Home Meds and New Rx's Prescriptions: No Action levofloxacin 500 mg tablet 500 mg PO DAILY Qty: 3 0RF Rx Instructions: Take 1 tab the day before the procedure, one the day of the procedure, and 1 tab the day after the procedure. mirtazapine 30 MG tablet,disintegrating 15 mg PO .QHS atorvastatin [Lipitor] 10 MG tablet 20 mg PO DAILY gabapentin 400 MG capsule 400 mg PO TID levothyroxine 137 MCG tablet 175 mcg PO DAILY@0730 Rx Instructions: 138 MCG DAILY atenolol 50 MG tablet 25 mg PO DAILY sertraline 100 mg Tablet 200 mg PO DAILY clonazepam 1 mg tablet 1 mg PO BID Label Comments: TAKE ONE TABLET BY MOUTH TWICE A DAY NEEDED FOR ANXIETY fluticasone propionate 50 mcg/actuation spray,suspension 2 spray INTRANASAL DAILY Label Comments: USE 2 SPRAYS IN EACH NOSTRIL ONCE DAILY Bevespi Aerosphere 9-4.8 mcg HFA aerosol inhaler 2 puff INHALATION BID Label Comments: INHALE TWO PUFFS BY MOUTH TWICE A DAY ketoconazole 2 % Shampoo 1 applic TOPICAL USEASDIRECTD carbidopa-levodopa [Sinemet] 25-100 mg Tablet 2 tab PO TID ibuprofen [Ibuprin] 200 mg Tablet 400 mg PO Q6H PRN Discharge Instructions Stand Alone Forms: Post-op Topical Cataract, Kaushik Serrato (DSU) Discharge Orders Discharge Orders: Discharge Order (Routine); Ordered 10/14/21 Ordered By: Spike Avila DS: Diagnosis Discharge Diagnosis (1) Nuclear sclerotic cataract of right eye: Status: Resolved (2) Posterior subcapsular age-related cataract, right eye: Status: Resolved
--- NOTE | 2021-10-14 09:32 | ROE_ITS ---
Date of service: 10/14/21 Time of Service: 08:32 Operative Note Operative Note DATE OF PROCEDURE: 10/14/21 PRE-OP DIAGNOSIS: Nuclear/posterior subcapsular cataract, right eye POST-OP DIAGNOSIS: same PROCEDURE: Cataract extraction using phacoemulsification with intraocular lens implant, right eye SURGEON: Spike Avila ANESTHESIA TYPE: Local By Surgeon and MAC Refer to Anesthesia Record ESTIMATED BLOOD LOSS: 0 PATHOLOGY: none sent COMPLICATIONS: None Patient was transported to: same day Patient's condition: stable Implants: [employer]ev[employer] & Estevan/PEDRO Tecnis [id number] Indications: Progressive visual loss due to cataract, right eye Procedure Description: CATARACT SURGERY OPERATIVE REPORT PREOPERATIVE DIAGNOSIS: 1. Nuclear/posterior subcapsular cataract, right eye POSTOPERATIVE DIAGNOSIS: Same OPERATION: 1. Cataract extraction using phacoemulsification with posterior chamber intraocular lens implant, right eye. IOL: IOL Data Processing Systems Project Planner/Model: [employer] Estev[employer] / PEDRO Tecnis [id number] IOL Power: + 25.5 diopters IOL Serial Number: [id number] Optic Diameter: 6.0mm Haptic/Overall Diameter: 13.0mm PHACO INFO: Heraclio Zinkiaurion Vision System with OZil and Active Fluidics Cumulative Dispersed Energy (CDE): 10.54 seconds SURGEON: Spike Avila MD, CADEN ANESTHESIA: Monitored Anesthesia Care (MAC), with local sub-tenon's anesthetic infiltration COMPLICATIONS: None SPECIMENS: None INDICATIONS FOR PROCEDURE: Patient is an 85-year-old gentleman is previously undergone cataract surgery in his left eye in [place]. He now presents with complaints of decreased vision in his right eye. He is noted to have a significant nuclear and posterior subcapsular cataract. The option of cataract surgery was offered to the patient and he wished to proceed. PROCEDURE: The correct surgical eye was identified and marked as the right eye and the pupil was dilated in the preoperative area using mydriatics and cycloplegics. The dilated pupil size was 7.0 mm. He elected to proceed without oral sedation. The patient was brought to the operating room where cardiopulmonary monitoring was instituted and surgical time-out was performed, confirming the correct operative eye and IOL power. Topical anesthesia was administered and ophthalmic povidone-iodine 5% was instilled into the conjunctival fornices. Lidocaine gel was applied to the cornea and the darin-ocular area was prepped with Betadine 10% solution and draped in the usual sterile fashion for intraocular surgery, including an aperture drape. A Tegaderm transparent film dressing was cut in half and used to cover the lashes and lid margins. Care was taken to sequester the lashes and lid margins under the Tegaderm dressing. A lid speculum was placed between the lids of the operative eye and the Heraclio LuxOR Revalia operating microscope was maneuvered into position. Allisno scissors were then used to make a conjunctival buttonhole approximately 6mm posterior to the limbus in the inferonasal quadrant. Blunt dissection was carried out to expose bare sclera, and a blunt-tipped sub-tenon?s anesthesia cannula was introduced and passed posteriorly along the globe where non- preserved plain lidocaine was injected into posterior sub-Tenon?s space. A sideport knife was used to make a paracentesis port inferotemporally. Intraocular phenylephrine/lidocaine was injected into the anterior chamber. The anterior chamber was filled with viscoelastic. A 2.4mm keratome knife was used to construct a 2-plane near-clear corneal tunnel extending 2.0mm into clear cornea superiortemporally. A flap was raised on the anterior capsule and capsulorhexis forceps were used to complete a continuous curvilinear capsulorhexis of 5.0 mm. Capsulorhexis was challenging due to constant patient movement as well as constant unpredictable eye movement. The eye had to be fi xated with forceps in order to accomplish a capsulorrhexis, which was irregular. The capsule was also noted to be quite thin. Significant zonular laxity was noted. Balanced salt solution was then used to perform cortical cleaving hydrodissection and nuclear hydrodelineation until the lens could be freely rotated within the capsular bag. The lens nucleus was then disassembled and removed within the capsular bag and iris plane using phacoemulsification. Additional Viscoat was injected into the anterior chamber periodically to protect the corneal endothelium due to the shallow chamber. Cortical material was removed using the I/A handpiece. The posterior capsule was not polished due to loose zonules, and very thin and diaphanous posterior capsule. bag was then inflated and the anterior chamber deepened with viscoelastic. A Morcher Type 15 capsular tension ring was then carefully inserted to support the generalized zonular weakness as well as inhibit anterior capsular contraction p ostoperatively. Lens implant described above was inserted into the capsular bag using the PEDRO [place] Injector. A Kuglen hook was used to dial the IOL into position. Residual viscoelastic was then removed first from posterior to the IOL, then from the anterior chamber using the I/A handpiece. The lens implant was noted to center nicely within the capsular bag. The incisions were stromally hydrated, and the anterior chamber was reformed using BSS. Then 0.5cc of moxifloxacin 1.0mg/ml were injected into the capsular bag and anterior chamber. The incisions were checked with a Weck spear and found to be secure. Several drops of ophthalmic povidone-iodine 5% were then applied to the eye followed by two drops of Imprimis combination prednisolone/moxifloxacin/nepafenac solution. The drapes were removed and a clear plastic protective eye shield was placed over the eye. The patient was then returned to Same Day Surgery in stable condition.
--- NOTE | 2021-10-14 09:32 | W.ANESPOSTOP ---
Postoperative Evaluation Date, Time and Location Date Performed: 10/14/21 Time Performed: 09:32 Patient Location: Day Surgery Unit Vital Signs Most Recent Imported Vital Signs: Most Recent Vital Signs Temp Pulse Resp BP Pulse Ox 36.1 C L 71 18 152/73 H 97 10/14/21 08:25 10/14/21 08:25 10/14/21 08:25 10/14/21 08:25 10/14/21 08:25 Most Recent Manually Entered Vital Signs: Adult Blood Pressure: 141/79 Heart Rate: 64 Respirations: 17 Oxygen Saturation (%): 95 Temperature (C): 37 C Pain Score (0-10 Scale): 0 Pain Score Most Recent Pain Score: Most Recent Pain Score Pain Level 0 10/14/21 08:25 Assessment Mental Status: Awake (Alert & Oriented to Patient Baseline) Airway and Respiratory Function: Patent airway with normal (patient baseline) respiratory exam Cardiovascular Function: Hemodynamically Stable Hydration Status: Adequately Hydrated Nausea & Vomiting: No Nausea or Vomiting Pain: Pt. Denies Any Pain Peripheral Nerve Block: Patient did not receive a nerve block
[2021-10-14 09:33] VITALS: BP 141/79; PULSE 64; RESP 17; TEMPC 37; O2SAT 95
== END 2021-10-14 10:00 | disposition home or self-care (01) ==
PROVIDERS: PCP Internal Medicine; Visit Provider Ophthalmology
PROC: (CPT 66984; principal; 2021-10-14 09:00)
DX: H25.041 Posterior subcapsular polar age-related cataract, right eye (principal); I35.0 Nonrheumatic aortic (valve) stenosis; I10 Essential (primary) hypertension; G20 Parkinson's disease
CPT/HCPCS: 66984; V2632

== ENCOUNTER 2022-04-21 09:54 | Outpatient (CLI) | payer MEDICARE, SELFPAY ==
--- NOTE | 2022-04-21 09:51 | DI.RAD_ITS ---
Exam(s) XR HIP LT COMPLETE AP PELVIS EXAM: XR HIP LT COMPLETE AP PELVIS INDICATION: L femoral neck fracture s/p BHARGAV. COMPARISON: CR XR FEMUR LT from 09/27/2021 CR XR PELVIS AP from 09/27/2021 TECHNIQUE: 2D digital imaging was performed. Two views. FINDINGS: There has been no change in the appearance of the right hip prosthesis. A left hip prosthesis has be en placed since the previous exam. The alignment appears satisfactory. No suspicious bony lucencies are seen. DATA REPOSITORY: RADIATION DOSE DELIVERED:
== END 2022-04-21 09:55 | disposition home or self-care (01) ==
LOC: DIORS 09:55
PROVIDERS: PCP Internal Medicine; Referring Provider Internal Medicine; Visit Provider Physician Assistant
DX: Z96.642 Presence of left artificial hip joint (principal)
CPT/HCPCS: 99213; 73502

== ENCOUNTER 2022-05-02 11:46 | Inpatient (IN) | payer MEDICARE, SELFPAY ==
[2022-05-02] VITALS (31 sets, daily range): BP systolic 97–128; BP diastolic 48–67; PULSE 63–87; RESP 8–36; TEMP 36.6–37.5; O2SAT 88–98
--- NOTE | 2022-05-02 11:30 | RT.EKG_ITS ---
APPROVED REPORT Exam: Resting ECG Reason for Exam: sob Patient Location: E HR:83 bpm ECG Measurements Heart Rate 83 AXIS OK [id number] P [id number] QRSd 79 QRS 74 QT 456 T 76 QTc 536 Conclusion Atrial flutter with predominant 3:1 AV block...A-rate 241, multiple Ps ST elevation secondary to atrial flutter Prolonged QT interval...QTc >500mS
--- NOTE | 2022-05-02 11:45 | DI.RAD_ITS ---
Exam(s) XR PORTABLE CHEST AP EXAM: XR PORTABLE CHEST AP CLINICAL HISTORY: cough TECHNIQUE: 2D digital imaging was performed of the chest. One image was obtained. An AP view was ob tained. COMPARISON: CR CHEST 2 VIEWS PA,LAT from 01/09/2017 FINDINGS: MEDIASTINUM: Normal. HEART: Normal. PULMONARY VASCULATURE: Normal. LUNGS: Bilateral pulmonary opacities are present. The findings are most marked in the right upper lo be. PLEURAL SPACE: No pleural effusion or pneumothorax. BONE:Within normal limits for the patient's age. OTHER FINDINGS:Normal. IMPRESSION: Pulmonary opacities suspicious for pneumonia. DATA REPOSITORY: RADIATION DOSE DELIVERED:
--- NOTE | 2022-05-02 11:56 | ED.GENADUL_ITS ---
Discharge Plan Disposition Patient Disposition: Admit to [facility] Condition: Stable Discharge Details Clinical Impression: Cough Admit Date/Time: 05/02/22 14:03 Admit Provider: Yesenia Holden Attending Provider: Yesenia Holden Primary Care Provider: Spike Borjas ED Provider: Frantz Pak Discharge Data Discharge Date/Time-TO BE ENTERED AT DEPARTURE: 05/02/22 16:26 Medical Decision Making 86 yo male with hx of copd, htn, who comes in with ems after home health noticed his oxygen saturation was in the high 80's and he has had a cough for the past day and general malaise. He denies any chest pain/pressure, states when he is at rest he feels well without symptoms but when he moves he does become short of breath. He has no abdominal pain, no headaches, no known fevers/chills. EMS did two ekg's while their ambulance was moving and were concerned about possible stemi, those strips were reviewed and I do not agree with them showing a stemi. He arrives stable, is 88% on room air in no distress, speaking in 3-4 word sentences. HE has diffuse rhonchi in both lungs in all lieberman, no jvd, no leg swelling, soft nontender abdomen. Given his cough and history suspect copd exacerbation, will treat with duoneb and steroids and reassess, solumedrol ordered. He has no chest pain/pressure so doubt acs, no evidence of dvt on exam so doubt PE and exam consistent with copd vs infectious etiology. Will obtain cbc, cmp, troponin, fluvid and also cxr and reassess. labs show wbc of 17, on my read of the xray has a right upper lobe infiltrate. He is stable on exam, is at bedside and advises he has had a worsening cough and general weakness for a week. Given his age, weakness and leukocytosis will discuss with hospitalist about admission Differential Diagnosis Differential Diagnosis: copd, pneumonia, flu, covid Medical Records Medical records reviewed: Yes I reviewed the patient's medical records. Imaging Data Radiologic Study: Attestation: I personally reviewed and interpreted this imaging study as follows: Imaging: X-Ray My impression: right upper lobe infiltrate Lab Data Lab results reviewed: Yes I reviewed the patient's lab results. ECG Data Attestation: I personally reviewed and interpreted this ECG (s) as follows: Prior ECG tracings: not available for review Interpretation: aflutter, rate of 83, qtc 536 no stemi Sign Out No HPI General Mode of arrival: EMS . Date/Time Provider Initiated Documentation: 05/02/22 11:53 . Limitations to Documentation: no limitations . Information obtained by: patient . History of Present Illness 86 year old M presents to the emergency department with the chief complaint of cough, described as moderate, Patient started experiencing this day(s) (1) and it has been constant. No relieving factors improve symptom(s), No exacerbating factors reported . Patient notes denies chest pain and fever/chills. Patient did receive the following treatments prior to arrival, none Related Data Home Medications Medication Instructions Recorded Confirmed atorvastatin 10 mg tablet (Lipitor) 20 mg PO QPM 05/27/13 05/02/22 gabapentin 400 mg capsule 400 mg PO TID 05/27/13 05/02/22 mirtazapine 30 mg disintegrating 15 mg PO .QHS 05/27/13 05/02/22 tablet sertraline 100 mg tablet 200 mg PO DAILY 03/19/18 05/02/22 clonazepam 1 mg tablet 1 mg PO BID 12/23/19 05/02/22 fluticasone propionate 50 2 spray intranasal DAILY 12/23/19 05/02/22 mcg/actuation nasal spray,suspension carbidopa 25 mg-levodopa 100 mg 2 tab PO TID 10/07/21 05/02/22 tablet (Sinemet) ibuprofen 200 mg tablet 400 mg PO Q6H PRN 10/14/21 05/02/22 ergocalciferol (vitamin D2) 1,250 1 cap PO QMONTH 05/02/22 05/02/22 mcg (50,000 unit) capsule levothyroxine 175 mcg tablet 175 mcg PO DAILY@0730 05/02/22 05/02/22 (Synthroid) loratadine-pseudoephedrine ER 10 1 tab PO DAILY 05/02/22 05/02/22 mg-240 mg tablet,extended [id number] (Claritin-D 24 Hour) nicotine 21 mg/24 hr daily 1 patch transdermal DAILY 05/02/22 05/02/22 transdermal patch Allergies Allergy/AdvReac Type Severity Reaction Status Date / Time quetiapine fumarate Allergy Severe Psychosis Verified 04/21/22 09:35 [From Seroquel] General Stated Complaint: SOB MUKESH: 3 Review of Systems All systems reviewed & are unremarkable except as noted in HPI and below Constitutional Constitutional: Denies chills and Denies fever(s) Cardiovascular Cardiovascular: Denies chest pain and Denies dyspnea Respiratory Respiratory: Denies dyspnea Gastrointestinal Gastrointestinal: Denies abdominal pain, Denies nausea and Denies vomiting Genitourinary Genitourinary: Denies dysuria Musculoskeletal Musculoskeletal: Denies joint swelling Integumentary/Breasts Skin/Breast: Denies rash PFSH All Active Problems (Updated 05/02/22 @ 17:29 by Yesenia Holden MD) Discharge planning issues (Acute) DVT prophylaxis (Acute) Hypoxia (Acute) CAP (community acquired pneumonia) (Acute) Cough (Acute) History of total left hip replacement (Acute 02/20/22) Tardive dyskinesia (Acute 05/27/13) Trochanteric bursitis (Acute) Spinal stenosis (Acute) Elevated PSA (Acute) Prostate nodule (Acute) Sensorineural hearing loss of both ears (Acute) Medical History (Updated 05/02/22 @ 17:29 by Yesenia Holden MD) Anxiety Aortic valve stenosis Per 10/05/21 H&P by [facility] PCP Dr. BORJAS: ...His murmur has changed today on exam and while he is overall asymptomatic, will obtain a TTE to assess the severity of his As to get a baseline valve area/ Chronic obstructive lung disease Depression Essential hypertension Hypothyroidism Osteoarthritis Parkinson disease Polymyalgia rheumatica Polyp of colon Tardive dyskinesia Surgical History (Updated 04/21/22 @ 09:51 by Samuel Calixto RN) Appendectomy Excision, Pilonidal Cyst History of right cataract surgery 10/14/21 Thyroid Family History Mother Heart disease Father Heart disease Other Personal history of malignant neoplasm Social History Smoking/Tobacco Use Status: Former Tobacco Use Quit Date: 02/19/22 Tobacco: How many years used: 73 Smoking risk assessment performed?: Yes Alcohol Intake: never Drug use: Never Substance use type: does not use Current gender identity: male Do you feel safe at home: Yes Do you feel safe in your relationship?: Yes Additional Social history: present in room during this assesment. Exam Const General: no acute distress Orientation: alert HENMT Head: normal to inspection Ears: external ears normal General nose exam: external nose normal Mouth: moist mucous membranes Eyes General: appearance normal, both eyes and all related structures Neck Neck: normal visual inspection Cardio Jugular venous pressure: no JVD Rate: regular rate Heart Sounds: murmur (mild systolic murmur at the left and right sternal border) GI Palpation: soft and nontender Skin General skin exam: no rashes or lesions noted Neuro General: patient alert and patient oriented x3 Extrem General: normal to inspection Psych Mental Status: mental status grossly normal Course Vital Signs Vital signs: Vital Signs Temperature 36.6 C 05/02/22 11:46 Pulse 87 05/02/22 11:46 Respiratory Rate 26 H 05/02/22 11:46 Blood Pressure 124/63 05/02/22 11:46 Pulse Oximetry 90 L 05/02/22 11:46 Temperature 36.6 C 05/02/22 11:46 Temperature Source Temporal Artery Scan 05/02/22 11:46 Pulse 87 05/02/22 11:46 Respiratory Rate 26 H 05/02/22 11:46 Blood Pressure 124/63 05/02/22 11:46 Blood Pressure Position Sitting 05/02/22 11:46 Pulse Oximetry 90 L 05/02/22 11:46 Oxygen Delivery Method Room Air 05/02/22 11:46 Oxygen Flow Rate 0 05/02/22 11:46 Pain Level 0 05/02/22 11:46
[2022-05-02 12:09] LABS: Abs Immature Grans 0.11 10^3/uL (0.0-0.06); Absolute Basophil Count 0.05 10^3/uL (0.0-0.2); Absolute Eosinophil Count 0.02 10^3/uL (0.0-0.7); Absolute Lymphocyte Count 1.05 10^3/uL (1.2-3.4); Absolute Monocyte Count 1.08 10^3/uL (0.1-0.8); Absolute Neutrophil Count 14.88 10^3/uL (1.2-6.7); Basophils % 0.3; Eosinophils % 0.1; HCT 35.7 % (40.0-50.0); HGB 11.1 g/dL (13.5-17.5); Immature Grans % 0.6; Lymphocytes % 6.1; MCH 29.8 pg (27.0-33.0); MCHC 31.1 % (32.0-36.0); MCV 96 fL (80-95); MPV 8.6 fL (8.0-11.0); Monocytes % 6.3; Neutrophils % 86.6; Platelet Count 402 10^3/uL (130-400); RBC 3.73 10^6/uL (4.36-5.78); RDW 13.7 % (11.8-14.1); RDW-SD 48.9 fL; WBC 17.18 10^3/uL (4.4-10.8)
[2022-05-02 12:23] LABS: INR 1.2 (0.9-1.1); PTT Activated 26.4 sec (21.0-27.5); Prothrombin Time 11.7 sec (9.3-11.0)
[2022-05-02 12:33] LABS: ALT 15 U/L (16-63); AST 84 U/L (15-37); Albumin 2.1 g/dL (3.4-5.0); Alkaline Phosphatase 194 U/L (46-116); BUN 27 mg/dL (7-18); Bilirubin, Total 0.4 mg/dL (0.2-1.0); Calcium 8.4 mg/dL (8.5-10.1); Chloride 102 mmol/L (98-107); Glucose 148 mg/dL (74-106); Magnesium 2.1 mg/dL (1.8-2.4); Potassium 3.9 mmol/L (3.5-5.1); Sodium 139 mmol/L (136-145); Total Protein 8.6 g/dL (6.4-8.2); Troponin I < 50 ng/L (<or=60)
[2022-05-02] MEDS: methylPREDNISolone SUCC 125 MG VIAL IVP (12:33)
[2022-05-02] MEDS: Albuterol/Ipratropium 3 ML UPD VIAL UPD ×2 (12:34→17:57)
[2022-05-02 12:49] LABS: COVID-19 PCR Negative (Negative); Influenza A PCR Negative (Negative); Influenza B PCR Negative (Negative); RSV PCR Negative (Negative)
[2022-05-02 12:50] LABS: Source Nasopharynx
[2022-05-02] MEDS: cefTRIAXone 2 GM/50 ML BAG IVPB (13:10)
[2022-05-02 14:37] LABS: Lab Add On Test DONE
[2022-05-02 15:17] LABS: Procalcitonin 0.1 ng/mL
[2022-05-02] MEDS: Carbidopa 25/Levodopa 100 TAB PO ×2 (15:23→21:59)
[2022-05-02] MEDS: AZITHROMYCIN 500 MG in Normal Saline 250 ML 250 MG IVPB (15:23)
--- NOTE | 2022-05-02 17:18 | HPE_ITS ---
Date of service: 05/02/22 Time of Service: 17:18 Assessment and Plan Assessment and plan (1) CAP (community acquired pneumonia): Status: Acute Assessment and plan: Admit to med surg floor with empiric azithromycin/ceftriaxone. Await blood cultures, sputum c&S. Check urine for legionella, strep antigens and sputum for mycoplasma. Encourage IS, acapella. Scheduled + prn nebs. Wean O2 as tolerated. Obtain speech therapy c/s to rule out aspiration. (2) Hypoxia: Status: Acute Assessment and plan: Due to above. As above (3) Parkinson disease: Assessment and plan: Continue home sinemet. C/s PT, OT, speech. (4) Chronic obstructive lung disease: Assessment and plan: I am not sure how formally this was diagnosed. As above. Consider steroids. (5) Aortic valve stenosis: Assessment and plan: Avoid IVF. Encourage PO hydration; monitor volume status. (6) DVT prophylaxis: Status: Acute Assessment and plan: SC enoxaparin (7) Discharge planning issues: Status: Acute Assessment and plan: DNR/DNI PT/OT/Speech consulted. History of Present Illness History of Present Illness Chief Complaint: cough, weakness Narrative: Mr Hollins is an 86 year old male with PMHx of Chronic obstructive lung disease (not on oxygen at home), Parkinson's disease, as well as HTN, PMR, who presented to [facility] ED c/o cough and weakness. The patient states that he does not feel sick and hasn't felt sick, but does admit to a cough productive of white sputum for a couple of days. Denies fevers. He was saturating 88% on RA and was placed on 2L of O2 by ER, saturating in mid 90s. He does have a leucocytosis, tested negative for COVID/FLU/RSV, and His CXR revealed bilateral pulmonary opacities c/w pneumonia. He was started on empiric azithromycin and ceftriaxone. Hospitalist admission was requested. Review of Systems All systems reviewed & are unremarkable except as noted in HPI and below PFSH All Active Problems (Updated 05/02/22 @ 17:29 by Yesenia Holden MD) Discharge planning issues (Acute) DVT prophylaxis (Acute) Hypoxia (Acute) CAP (community acquired pneumonia) (Acute) Cough (Acute) History of total left hip replacement (Acute 02/20/22) Tardive dyskinesia (Acute 05/27/13) Trochanteric bursitis (Acute) Spinal stenosis (Acute) Elevated PSA (Acute) Prostate nodule (Acute) Sensorineural hearing loss of both ears (Acute) Medical History (Updated 05/02/22 @ 17:29 by Yesenia Holden MD) Anxiety Aortic valve stenosis Per 10/05/21 H&P by [facility] [place] PCP Dr. MOSQUERA: ...His murmur has changed today on exam and while he is overall asymptomatic, will obtain a TTE to assess the severity of his As to get a baseline valve area/ Chronic obstructive lung disease Depression Essential hypertension Hypothyroidism Osteoarthritis Parkinson disease Polymyalgia rheumatica Polyp of colon Tardive dyskinesia Surgical History (Updated 04/21/22 @ 09:51 by Samuel Calixto RN) Appendectomy Excision, Pilonidal Cyst History of right cataract surgery 10/14/21 Thyroid Family History Mother Heart disease Father Heart disease Other Personal history of malignant neoplasm Social History Smoking/Tobacco Use Status: Former Tobacco Use Quit Date: 02/19/22 Tobacco: How many years used: 73 Smoking risk assessment performed?: Yes Alcohol Intake: never Drug use: Never Substance use type: does not use Current gender identity: male Do you feel safe at home: Yes Do you feel safe in your relationship?: Yes Additional Social history: present in room during this assesment. Meds Allergies and Home Medications Allergies Allergy/AdvReac Type Severity Reaction Status Date / Time quetiapine fumarate Allergy Severe Psychosis Verified 04/21/22 09:35 [From Seroquel] Home Medications Medication Instructions Recorded Confirmed Type atorvastatin 10 mg tablet (Lipitor) 20 mg PO QPM 05/27/13 05/02/22 History gabapentin 400 mg capsule 400 mg PO TID 05/27/13 05/02/22 History mirtazapine 30 mg disintegrating 15 mg PO .QHS 05/27/13 05/02/22 History tablet sertraline 100 mg tablet 200 mg PO DAILY 03/19/18 05/02/22 History clonazepam 1 mg tablet 1 mg PO BID 12/23/19 05/02/22 History fluticasone propionate 50 2 spray intranasal DAILY 12/23/19 05/02/22 History mcg/actuation nasal spray,suspension carbidopa 25 mg-levodopa 100 mg 2 tab PO TID 10/07/21 05/02/22 History tablet (Sinemet) ibuprofen 200 mg tablet 400 mg PO Q6H PRN 10/14/21 05/02/22 History ergocalciferol (vitamin D2) 1,250 1 cap PO QMONTH 05/02/22 05/02/22 History mcg (50,000 unit) capsule levothyroxine 175 mcg tablet 175 mcg PO DAILY@0730 05/02/22 05/02/22 History (Synthroid) loratadine-pseudoephedrine ER 10 1 tab PO DAILY 05/02/22 05/02/22 History mg-240 mg tablet,extended [id number] (Claritin-D 24 Hour) nicotine 21 mg/24 hr daily 1 patch transdermal DAILY 05/02/22 05/02/22 History transdermal patch Exam Narrative Exam Narrative: General: Pleasant Elderly male who is A&Ox3, HOOPA, on 2L of O2 by SC, no dyspnea/tachypnea/cyanosis Neurological: A&Ox3, no focal deficits, HOOPA, does have some generalized weakn ess and rigidity Psychiatric: Appropriate speech pattern/content Skin: Healing abrasions on digits 1 and 2 LLE, digit 5 RLE. OTherwise, no rashes, intact HEENT: Atraumatic, normocephalic, EOMI, MMM, clear oropharynx, no submandibular or cervical lymphadenopathy, no goiter or JVD Cardiovascular: RRR, +MARGARET Lungs: Rhonchi anteriorly B Gastrointestinal: soft, nontender, nondistended Genitourinary: deferred Extremities: No edema BLEs, 1+ pedal pulse B, no clubbing/cyanosis. See skin exam above. Results Imaging Additional studies: CXR: Pulmonary opacities suspicious for pneumonia.? EKG: Aflutter, 2:1, HR 83, no acute ischemia Labs Result diagrams: 05/02/22 12:00 05/02/22 12:00 Labs: Laboratory Results - last 24 hr 05/02/22 05/02/22 05/02/22 12:00 12:00 12:00 WBC 17.18 H RBC 3.73 L Hgb 11.1 L Hct 35.7 L MCV 96 H MCH 29.8 MCHC 31.1 L RDW 13.7 Plt Count 402 H MPV 8.6 Immature Gran % 0.6 Neutrophils % 86.6 Lymphocytes % 6.1 Monocytes % 6.3 Eosinophils % 0.1 Basophils % 0.3 Nucleated RBC % 0.0 Absolute Neutrophils 14.88 H Absolute Lymphocytes 1.05 L Absolute Monocytes 1.08 H Absolute Eosinophils 0.02 Absolute Basophils 0.05 PT 11.7 H INR 1.2 H APTT 26.4 Sodium 139 Potassium 3.9 Chloride 102 Carbon Dioxide 29.0 Anion Gap 8.0 BUN 27 H Creatinine 1.0 Est GFR (CKD-EPI 2020) 73.30 Glucose 148 H Calcium 8.4 L Magnesium 2.1 Total Bilirubin 0.4 AST 84 H ALT 15 L Alkaline Phosphatase 194 H Troponin I < 50 Total Protein 8.6 H Albumin 2.1 L Procalcitonin COVID-19 Source SARS-CoV-2 (PCR) Influenza Type A (PCR) Influenza Type B (PCR) RSV (PCR) Add-On Test Request 05/02/22 05/02/22 05/02/22 12:00 12:00 12:00 WBC RBC Hgb Hct MCV MCH MCHC RDW Plt Count MPV Immature Gran % Neutrophils % Lymphocytes % Monocytes % Eosinophils % Basophils % Nucleated RBC % Absolute Neutrophils Absolute Lymphocytes Absolute Monocytes Absolute Eosinophils Absolute Basophils PT INR APTT Sodium Potassium Chloride Carbon Dioxide Anion Gap BUN Creatinine Est GFR (CKD-EPI 2020) Glucose Calcium Magnesium Total Bilirubin AST ALT Alkaline Phosphatase Troponin I Total Protein Albumin Procalcitonin 0.1 COVID-19 Source Nasopharynx SARS-CoV-2 (PCR) Negative Influenza Type A (PCR) Negative Influenza Type B (PCR) Negative RSV (PCR) Negative Add-On Test Request DONE 05/02/22 14:43 WBC RBC Hgb Hct MCV MCH MCHC RDW Plt Count MPV Immature Gran % Neutrophils % Lymphocytes % Monocytes % Eosinophils % Basophils % Nucleated RBC % Absolute Neutrophils Absolute Lymphocytes Absolute Monocytes Absolute Eosinophils Absolute Basophils PT INR APTT Sodium Potassium Chloride Carbon Dioxide Anion Gap BUN Creatinine Est GFR (CKD-EPI 2020) Glucose Calcium Magnesium Total Bilirubin AST ALT Alkaline Phosphatase Troponin I Cancelled Total Protein Albumin Procalcitonin COVID-19 Source SARS-CoV-2 (PCR) Influenza Type A (PCR) Influenza Type B (PCR) RSV (PCR) Add-On Test Request Last Vital Signs Temp 36.6 C 05/02/22 11:46 Pulse 79 05/02/22 16:31 Resp 20 05/02/22 16:31 BP 104/59 L 05/02/22 16:31 Pulse Ox 90 L 05/02/22 16:31
[2022-05-02] MEDS: Enoxaparin 40 MG/0.4 ML SYR SC (20:34)
[2022-05-02] MEDS: guaiFENesin 600 MG TABCR PO (21:59)
[2022-05-02] MEDS: clonazePAM 1 MG TAB PO (21:59)
[2022-05-02] MEDS: Mirtazapine 15 MG TAB PO (21:59)
[2022-05-02] MEDS: Gabapentin 400 MG CAP PO (21:59)
[2022-05-03] VITALS (25 sets, daily range): BP systolic 89–120; BP diastolic 48–65; PULSE 55–79; RESP 8–25; TEMP 36.3–37.1; O2SAT 88–98
[2022-05-03 05:54] LABS: Abs Immature Grans 0.04 10^3/uL (0.0-0.06); Absolute Basophil Count 0.01 10^3/uL (0.0-0.2); Absolute Lymphocyte Count 1.47 10^3/uL (1.2-3.4); Absolute Monocyte Count 0.73 10^3/uL (0.1-0.8); Absolute Neutrophil Count 9.22 10^3/uL (1.2-6.7); Basophils % 0.1; HCT 30.4 % (40.0-50.0); HGB 9.6 g/dL (13.5-17.5); Immature Grans % 0.3; Lymphocytes % 12.8; MCH 29.5 pg (27.0-33.0); MCHC 31.6 % (32.0-36.0); MCV 94 fL (80-95); MPV 8.7 fL (8.0-11.0); Monocytes % 6.4; Neutrophils % 80.4; Platelet Count 336 10^3/uL (130-400); RBC 3.25 10^6/uL (4.36-5.78); RDW 13.8 % (11.8-14.1); RDW-SD 47.3 fL; WBC 11.47 10^3/uL (4.4-10.8)
[2022-05-03] MEDS: Albuterol/Ipratropium 3 ML UPD VIAL UPD ×5 (06:06→23:45)
[2022-05-03 06:19] LABS: Anion Gap 9.9 mmol/L (3-11); BUN 32 mg/dL (7-18); CO2 26.1 mmol/L (21.0-32.0); CREATININE 0.9 mg/dL (0.70-1.30); Calcium 8.1 mg/dL (8.5-10.1); Chloride 104 mmol/L (98-107); Estimated GFR 83.18 (mL/min/1.73m2); Glucose 134 mg/dL (74-106); Potassium 3.7 mmol/L (3.5-5.1); Sodium 140 mmol/L (136-145); TSH (W/Ref FT4) 0.11 uIU/mL (0.36-3.74)
[2022-05-03 06:43] LABS: FREE T4 1.28 ng/dL (0.76-1.46)
[2022-05-03] MEDS: Levothyroxine 150 MCG TAB PO (08:04)
[2022-05-03] MEDS: Sertraline 100 MG TAB 200 MG PO (09:06)
[2022-05-03] MEDS: Carbidopa 25/Levodopa 100 TAB PO ×3 (09:06→16:34)
[2022-05-03] MEDS: Gabapentin 400 MG CAP PO ×3 (09:06→20:58)
[2022-05-03] MEDS: Loratidine 10 MG TAB PO (09:07)
[2022-05-03] MEDS: clonazePAM 1 MG TAB PO ×2 (09:07→20:58)
[2022-05-03] MEDS: guaiFENesin 600 MG TABCR PO ×2 (09:07→20:58)
[2022-05-03] MEDS: Fluticasone NASAL SPRAY 16 GM BTL NS (09:30)
--- NOTE | 2022-05-03 09:50 | IN_ITS ---
Date of service: 05/03/22 Time of Service: 09:50 PT Notes Visit Reasons: Pneumonia with Hypoxia Physical Therapy Inpatient Initial Evaluation Date: 05/03/2022 Referring Doctor: Yesenia Holden MD PT Orders: PT CONSULT: Limited ability Precautions: Fall. Standard. Activity as tolerated. Patient Profile/Admitting Diagnosis: Ulysses is an 86-year-old male who presented to the ED on 05/02/2022 due to cough, generalized body malaise, and shortness of breath. Patient admitted to MedSurg unit for management of community-acquired pneumonia, hypoxia, Parkinson's disease, COPD exacerbation, and a aortic valve stenosis. PMHX: All Active Problems?(Updated 05/02/22 @ 17:29 by Yesenia Holden MD) Discharge planning issues (Acute) DVT prophylaxis (Acute) Hypoxia (Acute) CAP (community acquired pneumonia) (Acute) Cough (Acute) History of total left hip replacement (Acute 02/20/22) Tardive dyskinesia (Acute 05/27/13) Trochanteric bursitis (Acute) Spinal stenosis (Acute) Elevated PSA (Acute) Prostate nodule (Acute) Sensorineural hearing loss of both ears (Acute) Medical History?(Updated 05/02/22 @ 17:29 by Yesenia Holden MD) Anxiety Aortic valve stenosis Per 10/05/21 H&P by [facility] PCP Dr. MOSQUERA: ...His murmur has changed today on exam and while he is overall asymptomatic, will obtain a TTE to assess the severity of his As to get a baseline valve area Chronic obstructive lung disease Depression Essential hypertension Hypothyroidism Osteoarthritis Parkinson disease Polymyalgia rheumatica Polyp of colon Tardive dyskinesia Surgical History?(Updated 04/21/22 @ 09:51 by Samuel Calixto RN) Appendectomy Excision, Pilonidal Cyst History of right cataract surgery 10/14/21Thyroid Social History/Home Situation: Lives with in a private home with 3-4 steps to enter with rails on both sides. Modified independent with mobility ADL performance using front wheel walker indoors. 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 Equipment Owned/DME: [employer] Subjective: Denies chest pain, headache, and lightheadedness throughout session. Did complain of fatigue with ambulation activity. Objective: General Observation: Seated on bedside chair. Telemetry monitoring in place. Mental Status: Alert and oriented as to person, place, time, and purpose. Has minimal difficulty focusing and following instructions. Pain: Denies Vital Signs: WNL discussed monitored by nursing staff ROM: Right Upper Extremity: Shoulder Flexion WFL. Shoulder abduction WFL. Elbow flexion WFL. Wrist flexion WFL. Functional opening and closing of hand WFL. Left Upper Extremity: Shoulder Flexion WFL. Shoulder abduction WFL. Elbow flexion WFL. Wrist flexion WFL. Functional opening and closing of hand WFL. Right Lower Extremity: Hip flexion WFL. Hip abduction WFL. Knee flexion WFL. Ankle dorsiflexion WFL. Ankle plantarflexion WFL. Left Lower Extremity: Hip flexion WFL. Hip abduction WFL. Knee flexion WFL. Ankle dorsiflexion WFL. Ankle plantarflexion WFL. Strength: Right Upper Extremity: Shoulder flexors 4-/5. Shoulder abductors 4-/5. Elbow flexors 4-/5. Elbow extensors 4-/5. Senior Research Analyst strong. Left Upper Extremity: Shoulder flexors 4-/5. Shoulder abductors 4-/5. Elbow flexors 4-/5. Elbow extensors 4-/5. Senior Research Analyst strong. Right Lower Extremity: Hip flexors 4-/5. Hip abductors 4-/5. Knee flexors 4-/5. Knee extensors 4-/5. Ankle dorsiflexors 4-/5. Ankle plantarflexors 4-/5. Left Lower Extremity: Hip flexors 4-/5. Hip abductors 4-/5. Knee flexors 4-/5. Knee extensors 4-/5. Ankle dorsiflexors 4-/5. Ankle plantarflexors 4-/5. Bed Mobility/Transfers: Sit to stand with contact guard assist Stand to sit with contact guard assist Gait: Instructed patient with level surface ambulation of 50 feet requiring minimal assist. Jazmín decreased. Shuffles. Step height decreased. Step length decreased. Thoracic kyphosis. Demonstrate difficulty with directional changes requiring minimal assist for walker management. No loss of balance. Minimal shortness of breath subsided with rest. Balance: Static Sitting: Normal Dynamic Sitting: Normal Static Standing: Fair Dynamic Standing: Fair Special Tests: Mobility Limitations Standardized Measure [facility] 6 clicks Basic Mobility Inpatient Short Form: Raw Score: 18 CMS Score: 47% deficit Informed Consent/Education: Patient was instructed in purpose of PT consult and plan of care. Agreeable to proceed with established PT POC to achieve personal goals. Assessment: Patient requires the use of a front-wheeled walker for all mobility ADL performance to maximize independence and reduce fall risk. Activity tolerance reduced due to admitting diagnosis. Patient presents with clinical signs and symptoms consistent with current/admitting diagnoses that have resulted to mobility limitations, gait instability, generalized weakness, and overall ADL decline as demonstrated by the following impairment level findings: 1. Decreased strength to B UE/LE major muscle groups 2. Impaired sitting/standing balance 3. Impaired activity tolerance Impairments are contributing to the following functional limitations: 1. Difficulty with ambulation without assistive device and physical assistance 2. Increased completion time for mobility ADL performance 3. Increased risk for falls 4. Difficulty with managing steps alone safely Patient is assessed as a 49017 moderate complexity complexity based on the following: History: 86-year-old male with past medical history as indicated above Examination: Demonstrable impairment in strength, balance, and mobility level with underlying impairments and functional limitations as exhibited above as well as deficit score of 47% utilizing the [facility] Mobility Inpatient Short Form Presentation: Evolving Decision Makin moderate complexity Goals: Goals X1 week 1. Supine-Sit independent 2. Sit-Supine independent 3. Sit-Stand independent 4. Stand-Sit independent with FWW 5. Bed-Chair independent with FWW 6. Chair-Bed independent with FWW 7. Independent gait on level surface with use of FWW for at least 200 feet without report of pain nor dyspnea 8. Independent stair negotiation while holding onto B rails for at least 5 steps without report of pain nor dyspnea 9. Independent with home exercise program 10. Good static and dynamic standing balance/tolerance Plan of Care/Treatment Plan: 1-2x/day, 7 days/week x 1 week. Plan of care has been reviewed with the ANIMAL PATHOLOGIST providing the service under Physical Therapy direction. Initiate Physical Therapy intervention for pain management as needed, strengthening, bed mobility, transfers, gait, stairs, balance training, and use of assistive device. DISCHARGE RECOMMENDATIONS: [] Home with no services [] [X] Home with services. Home when medically cleared by hospitalist. Recommend HH PT for continued rehab to achieve highest mobility level. Will need proision of FWW if not available at home prior to discharge. [] Home with outpatient PT [] [] SNF for continued rehabilitation [] [] Longterm Care [] [] SNF versus LTC based on ability to participate and progress [] TREATMENT CODE/TIME: 04960 x 20 minutes, 43544 x 13 minutes beginning at 9:50 AM. Thank you for the opportunity to participate in the care of this patient. Antonina Russell PT, DPT, CLT [facility] [place], [place]
--- NOTE | 2022-05-03 10:10 | PDOC.CMIN ---
- If Service Date Differs Date of service: 05/03/22 Time of Service: 10:10 Care Management Initial Assess REASON FOR HOSPITALIZATION:: CAP, Hypoxia PAST MEDICAL HISTORY/PAST SURGICAL HISTORY:: All Active Problems (Updated 05/02/22 @ 17:29 by Yesenia Holden MD). Discharge planning issues (Acute). DVT prophylaxis (Acute). Hypoxia (Acute). CAP (community acquired pneumonia) (Acute). Cough (Acute). History of total left hip replacement (Acute 02/20/22). Tardive dyskinesia (Acute 05/27/13). Trochanteric bursitis (Acute). Spinal stenosis (Acute). Elevated PSA (Acute). Prostate nodule (Acute). Sensorineural hearing loss of both ears (Acute). Medical History (Updated 05/02/22 @ 17:29 by Yesenia Holden MD). Anxiety. Aortic valve stenosis. Per 10/05/21 H&P by [facility] PCP Dr. MOSQUERA: ...His murmur has changed today on exam and while he is overall asymptomatic, will obtain a TTE to assess the severity of his As to get a baseline valve area/. Chronic obstructive lung disease. Depression. Essential hypertension. Hypothyroidism. Osteoarthritis. Parkinson disease. Polymyalgia rheumatica. Polyp of colon. Tardive dyskinesia. Surgical History (Updated 04/21/22 @ 09:51 by Samuel Calixto RN). Appendectomy. Excision, Pilonidal Cyst. History of right cataract surgery. 10/14/21. Thyroid PREVIOUS FUNCTIONAL STATUS/SOCIAL/FAMILY SUPPORTS:: Uylsses is and lives in [facility] with his Breanne. The couple have 2 Sons who live out [place] [facility]. 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 Ulysses is active and independent at baseline. His provides his transportation since he no longer drives. CURRENT FUNCTIONAL STATUS:: Ulysses is sound asleep. Information for this initial assessment is provided by patients Breanne. ADVANCE DIRECTIVES:: None on file, will offer form. Has patient been provided with info about the portal/API?: Yes Did the patient sign up for the portal?: No CODE STATUS:: DNR/DNI INSURANCE COVERAGE / FINANCIAL ISSUES:: [facility]/[employer] CURRENT HOME/COMMUNITY SERVICES/EQUIPMENT:: Walker. Has [facility] RN/PT/ST PRIMARY CARE PHYSICIAN:: Spike Bruno POTENTIAL DISCHARGE NEEDS:: Evaluation for increased community services and support. CM placed referral to [facility] at wifes request. Resumption of [facility] services. PATIENT/FAMILY EDUCATION NEEDS:: Review discharge instructions, limitations, medications and plan to follow up with community providers. Discuss ask me three and goals of self care. TRANSPORTATION:: Via private vehicle with . PLAN:: Anticipate, Ulysses will discharge home with Resumption of [facility] RN/PT/ST services when medically ready. He will follow up with community providers and discharge plan of care as prescribed. Ulysses will transport via private vehicle with family. New RX's can be sent to [facility]. CM faxed a referral to [facility]. Patients is interested in discussing increased community support and services.
--- NOTE | 2022-05-03 11:00 | SP_ITS ---
Date of service: 05/03/22 Time of Service: 11:40 Subjective Clinical (Bedside) Swallow Evaluation Speech Language Pathology Patient referred for Clinical Swallow Evauation from given baseline dysphagia. Precautions: Fall, Standard, DNR/DNI HPI: Pt is a 86 year old M admitted with community acquired PONA, acute hypoxia, and existing diagnoses of Parkinson's Disease, Aortic Valve Stenosis, and COPD. Remote hx tardive dyskenesia and CVA noted in chart review as well. He has longstanding hx with [facility] services at [facility] as far back as 2012 for both dysarthria and dysphagia. He is currently seen by HH [facility] Laureen Michaud. He also had a swallow study done at [facility] on May 01 (two days ago) and was noted with silent aspiration of thin liquids, weak cough, absent epiglottic inversion, and delayed initiation of pharyngeal swallow. Recommended diet at that time was puree solids and nectar-thick liquids. states that he previously had his diet changed (per chart review, appears it was minced/moist and mildly thick liquids) but that during the time that they were adhering to this diet he lost 30 lbs. Predisposing dysphagia risk factors: Parkinson's Disease, COPD, CVA Clinical signs of possible chronic dysphagia: weight loss, PNA Precipitating dysphagia risk factors / triggering event: hypoxia IMPRESSION: Patient presents with severe oral-pharyngeal dysphagia characterized by consistent coughing, wet vocal quality with thin, mildly thick, puree, and solid textures. Patient is likely to aspirate across textures/consistencies based on evaluation today and given very recent MBSS results from [facility], though with some improvement with pureed vs solid and with thickened vs thin liquids. Patient is actively followed by HH [facility]. Reviewed recent MBSS results with patient/caregiver, including diet consistency recommendations at that time of puree/nectar thick liquids. Patient/caregiver are educated on the increased risks of chewable textures and thin liquids, but have clearly stated their goals for quality of life rather than safest possible PO intake. ?At this time they are agreeable only to the following diet consistency, aspiration precautions, and risk management recommendations as outlined below. Additional education was provided regarding improving frequency and diligence of oral care to mitigate pulmonary risks. Recommendations for Providers: Consider Nutrition & Palliative consults Speech Therapy: Inpatient: [facility] to follow while on unit for additional education provision. Outpatient: Cont' with home health [facility] or SNF with [facility] services pending PT/OT recommendations. Consider eMST for cough strength. Diet Texture Modification(s): IDDSI Level(s) SOLIDS 6-Soft & Bite-Sized Solids LIQUIDS 2-Mildly Thick Liquids (anything other than water should be thickened, no thin liquids during meals) Ritchie Freewater Protocol THIN LIQUIDS (WATER ONLY) OK/ENCOURAGED BETWEEN MEALS ONLY THOROUGH ORAL CARE SHOULD BE PROVIDED PRIOR TO PROVIDING WATER Medication Intake: Whole with 4-Extremely Thick Liquids RISK MANAGEMENT: HOB upright as tolerated; upright for all PO intake. Encourage physical mobility as tolerated. Oral hygiene q4h/every 4 hours, & before/after PO intake, using friction with toothbrush on all oral structures as tolerated, suction PRN ? Level of Assistance/Supervision: 1:1 close supervision for all PO intake PO intake only when awake/alert? Strategies/Adaptations/Assistive Equipment: Reduce auditory and/or visual distractions when eating Provide verbal and/or visual cues to use recommended strategies Small sips and bites when eating Slow rate of intake Swallow between bites (Multiple swallows) Posture/Positioning Needs: Maintain upright position at least 30 minutes after meals, Avoid meals/snacks 2- 3 hours prior to reclining/sleeping, Sleep with head of bed elevated to reduce likelihood of nocturnal reflux, Other EXAMINATION: Subjective: Patient was contacted at bedside this date. He appears largely without insight into his deficits, poor historian.His , samreen vega, was also present for the duration. Additional [facility] clinician also present and providing education and recommendations along with this clinician this date. Patient's reports recent MBSS results everything was just pouring down his airway. I know he's aspirating, but I can only do so much - the man won't eat that stuff, he lost 30 pounds when we changed his diet. She also reports working with home health [facility] Laureen who has previously provided recommendations regarding diet consistency and strategies, and has worked on swallow exercises with the patient in the past (describes CTAR). Spouse also reports prior [facility]'s with concern for GERD, though he is not on PPI's. She states it was actually a sinus issue and since this has been treated, his coughing at night has decreased due to less postnasal drip. Respiratory status: maintaining 91-93% O2 with 2L via NC. Oral-Motor Examination: Limited due to time constraints and difficulty following instructions Largely edentulous; patient has ill-fitting dentures at home. His feels they are not helpful for eating and make him harder to understand. Oral care is fair, mild buildup. Ropey secretions. Functional lingual strength and ROM Poor lip seal to resistance. Uvula raises bilaterally to resistance. Volitional cough is very weak, wet/congestive but appears unproductive. Volitional swallow: Unable to trigger saliva swallow (suspect cognitive difficulties/low insight) PO TRIALS: Thin liquids Mildly thick liquids Puree Soft/bite size solids Oral phase: Occasionally loading second bite before clearing first from oral cavity Pharyngeal phase: Patient with consistent coughing, wet vocal quality, throat clearing across consistencies noted this date, including thickened liquids and purees. Education provided: Rationale and instruction for improved frequency/diligence of oral care. Current level of risk of aspiration Current safest diet consistencies Impact of PD on swallow function Relationship between respiratory function and deglutition Rationale and instruction for current recommended strategies to reduce risk of aspiration and reduce risk of pulmonary complication Outcome: Caregiver& patient verbalize understanding, wishes to prioritize least restrictive diet (vs safest) consistency at this time despite risks. Agreeable to recommended swallow strategies and risk managmenet techniques. Objective Plan Short Term Goals: Patient/caregiver will demonstrate understanding of education r/t normal vs disordered swallow function, current aspiration risk, safest/least restrictive diet, impact of Parkinson's Disease on swallow function, rationale for recommended strategies and risk management strategies including oral care recommendations. Patient/caregiver will be independent with compensatory swallow strategies as outlined above. CPT: 29908 Clinical Swallow Evaluation Time spent: 50 minutes Coding
[2022-05-03] MEDS: Nicotine 21 MG/24 HR PATCH TD ×2 (11:55→20:58)
[2022-05-03] MEDS: cefTRIAXone 2 GM/50 ML BAG IVPB (12:21)
--- NOTE | 2022-05-03 14:25 | PHA.REVIEW2 ---
Pharmacy Admission Review - Admission Clinical Review (Last Reviewed 10/14/21 @ 08:16 by Jesse Bales) Discharge planning issues (Acute) DVT prophylaxis (Acute) Hypoxia (Acute) CAP (community acquired pneumonia) (Acute) Cough (Acute) quetiapine fumarate [From Seroquel] Allergy (Severe, Verified 04/21/22 09:35) Psychosis Resuscitation Status DNR/DNI Height 5 ft 9 in Weight 67.5 kg - Renal Dosing Renal Dosing: BUN 32 mg/dL (7-18) H 05/03/22 05:10 Creatinine 0.9 mg/dL (0.70-1.30) 05/03/22 05:10 Medications needing adjustments: Reviewed (eCrCl 50 ml/min) - Anticoagulation Anticoagulation: Hgb 9.6 g/dL (13.5-17.5) L 05/03/22 05:10 Hct 30.4 % (40.0-50.0) L 05/03/22 05:10 Plt Count 336 10^3/uL (130-400) 05/03/22 05:10 INR 1.2 (0.9-1.1) H 05/02/22 12:00 Creatinine 0.9 mg/dL (0.70-1.30) 05/03/22 05:10 DVT Prophylaxis: Reviewed Medications: Enoxaparin - Opiate Usage Evaluate Pain Scale/Pains Meds: N/A - Relevant Labs Sodium 140 mmol/L (136-145) 05/03/22 05:10 Potassium 3.7 mmol/L (3.5-5.1) 05/03/22 05:10 Chloride 104 mmol/L (98-107) 05/03/22 05:10 Magnesium 2.0 mg/dL (1.8-2.4) 05/03/22 05:10 Electrolytes, C-Reactive P, ESR: Reviewed - DM Control DM Control: Glucose 134 mg/dL (74-106) H 05/03/22 05:10 DM Control: N/A - Cardiac Review Cardiac Review: Troponin I Cancelled 05/02/22 14:43 BP, HR, EF%: Reviewed - Qtc Review QTc: Intervened If Elevated, List meds needing intervention: QTc 536 on admission, although a macrolide azithromycin is very low risk for torsade, all other orders ok - IV to PO Switch IV Medications: Reviewed - Home Meds Home Med List reviewed: Intervened Relevent Home Meds Not ordered & why?: added amlodipine to med list based on external rx hx/PCP encounter -- will notify MD; pt was dx'd with atrial flutter and was started on eliquis during recent hospitalization but pt's reported to PCP that they decided to stop taking it due to pt's high fall risk (parkinsons) - was also on Bevespi inhaler for COPD (Gold 2) but reported to PCP that he was not using it on 03/22/22 (still active on PCPs med list) - Current meds Current Medication Order Review: Reviewed (azithromycin + ceftriaxone for CAP (note: pt is high risk for aspiration pna))
[2022-05-03] MEDS: AZITHROMYCIN 500 MG in Normal Saline 250 ML 250 MG IVPB (15:04)
--- NOTE | 2022-05-03 16:00 | PGE_ITS ---
Date of Service Date of service: 05/03/22 Time of Service: 16:00 Assessment and Plan Assessment and plan (1) CAP (community acquired pneumonia): Status: Acute Assessment and plan: Continue empiric azithromycin/ceftriaxone. Blood cx NGTD x 24 hrs. sputum c&S not collected. Await urine for legionella, strep antigens and sputum for mycoplasma. Encourage IS, acapella. Scheduled + prn nebs. Add prednisone and a dose of furosemide. Wean O2 as tolerated. Aspiration component a possibility. Speech recommends soft and bite sized/mildly thickened fluids. (2) Hypoxia: Status: Acute Assessment and plan: Due to above. As above Weaning O2 as tolerated. (3) Parkinson disease: Assessment and plan: Continue home sinemet. C/s PT, OT, speech. (4) Chronic obstructive lung disease: Assessment and plan: I am not sure how formally this was diagnosed. As above. Add prednisone. (5) Aortic valve stenosis: Assessment and plan: Avoid IVF. Encourage PO hydration; TO receive 1 dose of IV lasix given rales auscultated today. (6) DVT prophylaxis: Status: Acute Assessment and plan: SC enoxaparin (7) Discharge planning issues: Status: Acute Assessment and plan: DNR/DNI PT/OT/palliative care consulted. Seen by speech. Subjective Subjective Interval history since last seen: Mr Hollins states that he would like to go home. He denies dizziness, chest pain, shortness of breath, cough, nausea. Exam Narrative Exam Narrative: General: Pleasant Elderly male who is A&Ox3, [place], on 1L of O2 by NC, no dyspnea/tachypnea/cyanosis HEENT: EOMI, MMM Cardiovascular: RRR, +MARGARET Lungs: Rales and rhonchi on expiration B Gastrointestinal: soft, nontender, nondistended Extremities: No edema BLEs Objective Last Vital Signs Temp 36.3 C L 05/03/22 08:00 Pulse 63 05/03/22 14:00 Resp 17 05/03/22 14:00 BP 109/53 L 05/03/22 14:00 Pulse Ox 90 L 05/03/22 14:20 Laboratory Results - last 24 hr 05/03/22 05/03/22 05:10 05:10 WBC 11.47 H RBC 3.25 L Hgb 9.6 L Hct 30.4 L MCV 94 MCH 29.5 MCHC 31.6 L RDW 13.8 Plt Count 336 MPV 8.7 Immature Gran % 0.3 Neutrophils % 80.4 Lymphocytes % 12.8 Monocytes % 6.4 Eosinophils % 0.0 Basophils % 0.1 Nucleated RBC % 0.0 Absolute Neutrophils 9.22 H Absolute Lymphocytes 1.47 Absolute Monocytes 0.73 Absolute Eosinophils 0.00 Absolute Basophils 0.01 Sodium 140 Potassium 3.7 Chloride 104 Carbon Dioxide 26.1 Anion Gap 9.9 BUN 32 H Creatinine 0.9 Est GFR (CKD-EPI 2020) 83.18 Glucose 134 H Calcium 8.1 L Magnesium 2.0 TSH 0.11 L Free T4 1.28
[2022-05-03] MEDS: Enoxaparin 40 MG/0.4 ML SYR SC (16:35)
[2022-05-03] MEDS: Furosemide 20 MG/2 ML VIAL IVP (16:35)
[2022-05-03] MEDS: predniSONE 20 MG TAB 40 MG PO (16:36)
--- NOTE | 2022-05-03 16:39 | PT.INTREAT ---
Date of service: 05/03/22 Time of Service: 16:39 PT Notes Visit Reasons: Pneumonia with Hypoxia Physical Therapy Inpatient Treatment Note Date: 05/04/2022 Precautions: Fall. Standard. Activity as tolerated. Subjective: Denies chest pain, headache, and lightheadedness throughout session.? Okay with transferring to chair for supper and doing seated exercises for this session. Objective: General Observation: Seated on bedside chair.? Telemetry monitoring in place. Mental Status: Alert and oriented as to person, place, time, and purpose. Has minimal difficulty focusing and following instructions. Pain: Denies Vital Signs: WNL discussed monitored by nursing staff Bed Mobility/Transfers: Sit to stand with contact guard assist Stand to sit with? contact guard assist Gait: Instructed patient with level surface ambulation of 10 feet inside room requiring contact guard assist. Jazmín decreased. Shuffles.? Step height decreased. Step length decreased.? Trunlk more erect.? Demonstrate difficulty with directional changes requiring minimal assist for walker management.? No loss of balance.? Minimal shortness of breath subsided with rest. Balance: Static Sitting: Normal Dynamic Sitting: Normal Static Standing: Fair Dynamic Standing: Fair Assessment: Patient requires the use of a front-wheeled walker for all mobility ADL performance to maximize independence and reduce fall risk.? Activity tolerance reduced due to admitting diagnosis.? DISCHARGE RECOMMENDATIONS: [] ? Home with no services [] [X] ? Home with services.? Home when medically cleared by hospitalist.? Recommend HH PT for continued rehab to achieve highest mobility level.? Will need proision of FWW if not available at home prior to discharge. [] ? Home with outpatient PT [] [] ? SNF for continued rehabilitation [] [] ? Skilled Nursing Care [] [] ? SNF versus LTC based on ability to participate and progress [] TREATMENT CODE/TIME: 65340 x 14 minutes beginning at 16:39 PM.
[2022-05-03] MEDS: Mirtazapine 15 MG TAB PO (20:58)
[2022-05-03] MEDS: Atorvastatin 20 MG TAB PO (20:58)
[2022-05-03] MEDS: Normal Saline Flush 10 ML SYR IVP (23:46)
[2022-05-04] VITALS (27 sets, daily range): BP systolic 110–145; BP diastolic 50–62; PULSE 58–88; RESP 1–23; TEMP 36.1–36.4; O2SAT 89–98
[2022-05-04] MEDS: Albuterol/Ipratropium 3 ML UPD VIAL UPD ×2 (06:03→11:48)
[2022-05-04 06:14] LABS: Abs Immature Grans 0.04 10^3/uL (0.0-0.06); Absolute Basophil Count 0.02 10^3/uL (0.0-0.2); Absolute Neutrophil Count 9.56 10^3/uL (1.2-6.7); Basophils % 0.2; HCT 32.3 % (40.0-50.0); HGB 10.4 g/dL (13.5-17.5); Immature Grans % 0.3; MCHC 32.2 % (32.0-36.0); MCV 93 fL (80-95); Monocytes % 4.8; Neutrophils % 79.7; Platelet Count 408 10^3/uL (130-400); RBC 3.47 10^6/uL (4.36-5.78); RDW 13.7 % (11.8-14.1); RDW-SD 46.6 fL; WBC 11.99 10^3/uL (4.4-10.8)
[2022-05-04 06:17] LABS: Absolute Monocyte Count 0.58 10^3/uL (0.1-0.8)
[2022-05-04 06:28] LABS: Anion Gap 9.2 mmol/L (3-11); BUN 36 mg/dL (7-18); CO2 27.8 mmol/L (21.0-32.0); CREATININE 1.1 mg/dL (0.70-1.30); Calcium 8.1 mg/dL (8.5-10.1); Chloride 102 mmol/L (98-107); Estimated GFR 65.38 (mL/min/1.73m2); Glucose 133 mg/dL (74-106); Potassium 4.2 mmol/L (3.5-5.1); Sodium 139 mmol/L (136-145)
[2022-05-04] MEDS: Carbidopa 25/Levodopa 100 TAB PO ×2 (07:30→12:10)
[2022-05-04] MEDS: Levothyroxine 150 MCG TAB PO (07:30)
[2022-05-04] MEDS: predniSONE 20 MG TAB 40 MG PO (08:34)
[2022-05-04] MEDS: Gabapentin 400 MG CAP PO (08:34)
[2022-05-04] MEDS: Loratidine 10 MG TAB PO (08:35)
[2022-05-04] MEDS: guaiFENesin 600 MG TABCR PO (08:35)
[2022-05-04] MEDS: clonazePAM 1 MG TAB PO (08:35)
[2022-05-04] MEDS: Sertraline 100 MG TAB 200 MG PO (08:35)
[2022-05-04] MEDS: Fluticasone NASAL SPRAY 16 GM BTL NS (08:52)
--- NOTE | 2022-05-04 10:32 | DSE_ITS ---
Date of service: 05/04/22 Time of Service: 10:32 DS: Diagnosis Discharge Diagnosis (1) Acute exacerbation of chronic obstructive pulmonary disease (COPD): Status: Acute (2) CAP (community acquired pneumonia): Status: Acute (3) Hypoxia: Status: Resolved (4) Oropharyngeal dysphagia: Status: Acute (5) Parkinson disease: (6) Aortic valve stenosis: (7) Ambulatory dysfunction: Status: Acute Discharge Plan Disposition Patient Disposition: Home W/Home Health Services Condition: Improving Discharge Details Reason For Visit: Pneumonia with Hypoxia Admit Date/Time: 05/02/22 14:03 Admit Provider: Yesenia Holden Attending Provider: Yesenia Holden Primary Care Provider: Spike Borjas Hospital Course Hospital Course: Mr Hollins is an 86 year old male with PMHx of non-oxygen dependent chronic obstructive pulmonary disease, as well as aortic stenosis, h/o Parkinson's disease with dysphagia and ambulatory dysfunction, hypothyroidism, who was a dmitted to [facility] hospitalist service on 05/02/22 with Bilateral upper lobe pneumonia causing COPD exacerbation with hypoxia, saturating 88% on RA and requiring 2L of O2 by NC to saturate in the 90s. He was treated with supplemental oxygen, scheduled and prn bronchodilator therapy, systemic antibiotics (azithromycin/ceftriaxone) and steroids. With this therapy, the patient's oxygen requirement resolved. He did also receive a dose of lasix as it was felt he had a slight component of fluid overload, but this therapy is not being continued on discharge. His ambulatory pulse ox on room air on discharge is in the 90s. He is being discharged home today to complete his prednisone taper and an antibiotic course. He was evaluated by speech therapy who recommend a modified diet (soft/bite sized/mildly thickened fluids; no liquids with meals, H2 between meals with oral care). It is important to note that he had just had an MBS as an outpatient demonstrating aspiration on most consistencies. Per con versation with the , it is more important for the patient's quality of life that he be permitted food, and she is comfortable with this level of a modified diet. He was also evaluated by PT, who recommend a new wheeled walker. The patient is being discharged home with resumption of home health PT, RN, speech therapy and addition of [employer]ICE MACH[employer]PER[employer]. He is also being referred to palliative care. Care for patient as well as completion of his discharge summary on day of discharge took 40 minutes. Home Meds and New Rx's Prescriptions: New ipratropium-albuterol 0.5 mg-3 mg(2.5 mg base)/3 mL Solution For Nebulization 3 ml UPD Q4H PRN PRN (Reason: shortness of breath or wheezing) Qty: 180 0RF levothyroxine 150 mcg Tablet 150 mcg PO DAILY@0730 Qty: 30 0RF guaifenesin [Mucus Relief ER] 600 mg Tablet Extended Release 12hr 600 mg PO BID PRN PRN (Reason: cough) Qty: 20 0RF prednisone 20 mg Tablet 40 mg PO DAILY Qty: 6 0RF cefpodoxime 200 mg tablet 200 mg PO BID Qty: 4 0RF Rx Instructions: first dose in am on 05/05/22. must administer with a meal/food azithromycin 250 mg tablet 250 mg PO DAILY 3 Days Qty: 3 0RF Rx Instructions: first dose this afternoon omeprazole magnesium 20 mg capsule,delayed release(DR/EC) 20 mg PO DAILY Qty: 7 0RF Continued mirtazapine 30 MG tablet,disintegrating 15 mg PO .QHS atorvastatin [Lipitor] 10 MG tablet 20 mg PO QPM gabapentin 400 MG capsule 400 mg PO TID sertraline 100 mg Tablet 200 mg PO DAILY clonazepam 1 mg tablet 1 mg PO BID Label Comments: TAKE ONE TABLET BY MOUTH TWICE A DAY NEEDED FOR ANXIETY fluticasone propionate 50 mcg/actuation spray,suspension 2 spray INTRANASAL DAILY Label Comments: USE 2 SPRAYS IN EACH NOSTRIL ONCE DAILY nicotine 21 mg/24 hr patch 24 hour 1 patch transdermal DAILY Label Comments: CHANGE 1 PATCH ON THE SKIN DAILY Rx Instructions: Pt takes at 2000 Q HS ergocalciferol (vitamin D2) 1,250 mcg (50,000 unit) capsule 1 cap PO QMONTH Label Comments: TAKE ONE BY MOUTH ONCE EVERY 30 DAYS amlodipine 2.5 mg tablet 2.5 mg PO DAILY Label Comments: TAKE ONE TABLET BY MOUTH EVERY DAY loratadine 10 mg Tablet 10 mg PO DAILY carbidopa-levodopa [Sinemet] 25-100 mg Tablet 2 tab PO TID Rx Instructions: Carbidopa-levodopa 25mg/100mg. Pt takes at 0900, 1300 and 1800 ibuprofen 200 mg Tablet 400 mg PO Q6H PRN Discontinued levothyroxine [Synthroid] 175 mcg tablet 175 mcg PO DAILY@0730 Label Comments: TAKE ONE TABLET BY MOUTH EVERY DAY Discharge Instructions Instructions: Prednisone (By mouth), Omeprazole (By mouth), Azithromycin (By mouth), Cefpodoxime Proxetil (By mouth), Ipratropium/Albuterol (By breathing), COPD (Chronic Obstructive Pulmonary Disease) (DC), Bacterial Pneumonia (DC) Additional Instructions: Finish your antibiotics and steroids as prescribed. Return to the hospital with any fever, bleeding, chest pain, or shortness of breath. Follow up with your PCP in 1-2 weeks. A palliative care referral is being sent (for a home visit). Care Plan Goals: Home with resumption of home health nursing, PT, speech, addition of [employer]ICE MACHINE [employer]PA[employer] SUPER[employer]OR and referral to palliative care for home visits Referrals: [facility] Palliative Care Clinic [Provider Group] (home visit) Spike Borjas [Primary Care Provider] - Activity:: Activity as Tolerated Equipment/Supplies:: wheeled walker, nebulizer Diet:: soft/bite sized and mildly thickened fluids Discharge Orders Discharge Orders: Discharge Order (Routine); Ordered 05/04/22 Ordered By: Yesenia Holden DS: Summary Time Spent with Patient providing and/or coordinating discharge services: Greater than 30 minutes Status at Discharge Functional status at discharge: uses cane/walker Overall status at discharge: patient is progressing back to baseline Mental Status: mental status grossly normal Speech and Movement: speech and movement normal Mood: congruent mood Affect: normal affect Exam Narrative Exam Narrative: General: Pleasant Elderly male who is A&Ox3, [place], on RA, no dyspnea/tachypnea/cyanosis, coughing HEENT: EOMI, MMM Cardiovascular: RRR, +MARGARET Lungs: rhonchi on expiration B, much improved Gastrointestinal: soft, nontender, nondistended Extremities: No edema BLEs Psych Mental Status: mental status grossly normal Speech and Movement: speech and movement normal Mood: congruent mood Affect: normal affect DS: Data Vitals/I&O Vitals and I&O: Vital Signs Temperature 36.1 C L 05/04/22 06:10 Temperature Source Temporal Artery Scan 05/04/22 06:10 Pulse 67 05/04/22 08:49 Pulse 74 05/04/22 08:49 Respiratory Rate 22 05/04/22 08:49 Respiratory Effort Non-Labored 05/04/22 09:40 Respiratory Depth Normal 05/04/22 09:40 Respiratory Pattern Normal 05/04/22 09:40 Blood Pressure 145/59 H 05/04/22 08:49 Blood Pressure Mean 80 05/04/22 08:49 Blood Pressure Position Supine 05/04/22 06:10 Pulse Oximetry 94 05/04/22 09:40 Oxygen Delivery Method Room Air 05/04/22 09:40 Oxygen Flow Rate 0 05/04/22 09:40 Fraction of Inspired Oxygen (FIO2) 21 05/03/22 17:58 Pain Level 0 05/04/22 06:10 Intake & Output 05/03/22 05/03/22 05/04/22 11:59 23:59 11:59 Intake Total 590 / 1200 610 / 1200 Output Total 225 / 425 200 / 425 500 / 500 Balance 365 / 775 410 / 775 -500 / -500 Weight 67.5 kg Intake: IV 310 / 310 Oral 590 / 890 300 / 890 Output: Urine 225 / 425 200 / 425 500 / 500 Other: Urine Color Dark Odalys Dark Odalys Yellow Urine Appearance Clear Clear Clear Urine Odor Normal Normal Comment Incontinent large amount of urine on floor, pt missed the urinal. Voiding Methods Urinal Urinal Urinal Data Completed and Pending Completed studies during hospitalization [Text1]: CXR 05/02/22: Pulmonary opacities suspicious for pneumonia.? Labs on day of discharge: Labs from last 24 hours 05/04/22 05/04/22 05:50 05:50 WBC 11.99 H RBC 3.47 L Hgb 10.4 L Hct 32.3 L MCV 93 MCH 30.0 MCHC 32.2 RDW 13.7 Plt Count 408 H MPV 9.0 Immature Gran % 0.3 Neutrophils % 79.7 Lymphocytes % 15.0 Monocytes % 4.8 Eosinophils % 0.0 Basophils % 0.2 Nucleated RBC % 0.0 Absolute Neutrophils 9.56 H Absolute Lymphocytes 1.80 Absolute Monocytes 0.58 Absolute Eosinophils 0.00 Absolute Basophils 0.02 Sodium 139 Potassium 4.2 Chloride 102 Carbon Dioxide 27.8 Anion Gap 9.2 BUN 36 H Creatinine 1.1 Est GFR (CKD-EPI 2020) 65.38 Glucose 133 H Calcium 8.1 L Magnesium 2.0 Preliminary micro results at discharge 05/02/22 12:58 Blood Culture - Preliminary Blood NO GROWTH 24 HOURS 05/02/22 12:58 Blood Culture - Preliminary Blood NO GROWTH 24 HOURS PFSH All Active Problems (Updated 05/04/22 @ 10:33 by Yesenia Holden MD) Acute exacerbation of chronic obstructive pulmonary disease (COPD) (Acute) Ambulatory dysfunction (Acute) Oropharyngeal dysphagia (Acute) Discharge planning issues (Acute) DVT prophylaxis (Acute) CAP (community acquired pneumonia) (Acute) Cough (Acute) History of total left hip replacement (Acute 02/20/22) Tardive dyskinesia (Acute 05/27/13) Trochanteric bursitis (Acute) Spinal stenosis (Acute) Elevated PSA (Acute) Prostate nodule (Acute) Sensorineural hearing loss of both ears (Acute) Medical History (Updated 05/04/22 @ 10:33 by Yesenia Holden MD) Anxiety Aortic valve stenosis Per 10/05/21 H&P by [facility] PCP Dr. BORJAS: ...His murmur has changed today on exam and while he is overall asymptomatic, will obtain a TTE to assess the severity of his As to get a baseline valve area/ Chronic obstructive lung disease Depression Essential hypertension Hypothyroidism Osteoarthritis Parkinson disease Polymyalgia rheumatica Polyp of colon Tardive dyskinesia Surgical History (Updated 04/21/22 @ 09:51 by Samuel Calixto RN) Appendectomy Excision, Pilonidal Cyst History of right cataract surgery 10/14/21 Thyroid Family History Mother Heart disease Father Heart disease Other Personal history of malignant neoplasm Social History Smoking/Tobacco Use Status: Former Tobacco Use Quit Date: 02/19/22 Tobacco: How many years used: 73 Smoking risk assessment performed?: Yes Alcohol Intake: never Drug use: Never Substance use type: does not use Current gender identity: male Do you feel safe at home: Yes Do you feel safe in your relationship?: Yes Additional Social history: present in room during this assesment.
--- NOTE | 2022-05-04 10:36 | W.NUTCONSULT ---
Date of service: 05/04/22 Time of Service: 10:36 Nutritional Consult ASSESSMENT: Met with Ulysses and his . reports Ulysses has lost over 30 lbs in last 6 months after having hip fracture and rehab stay. During Rehab stay per Barium swallow eval, was placed on pureed foods with thick liquids. PO intake was very poor. While at home, fed him mostly soft foods and avoided thin liquids. Has been able to maintain his weight in last month. Following soft bite size diet with mildly thick liquids- po intake 25-50%. bringining in foods daily from home to supplement. Currently meeting nutrient and fluid needs. Reviewed macronutrient and fluid needs for weight maintenance. Provided contact information for outpatient nutrition referrals. NUTRITIONAL DIAGNOSIS: unintentional weight loss of 20% in last 6 months secondary to poor intake with texture modified foods INTERVENTION: continue current meal plan MONITORING AND EVALUATION: weight, po intake, labs Time Spent in Nutritional Counseling and Treatment: 30
--- NOTE | 2022-05-04 10:54 | PDOC.CMDIS ---
- If Service Date Differs Date of service: 05/04/22 Time of Service: 10:54 LACE Index Scoring Tool - Questions: Length of Stay (in days): 2 Acuity (Admit via E.D.?): Yes Comorbidities: Dementia (Parkinsons) E.D. Visits: 2 - Answers: Total Score: 10 Risk of Readmission: High Risk Care Management Discharge Reason for Hospitalization: CAP, Hypoxia Discharge Plan: Ulysses is discharged home via private vehicle with family. He will follow up with community providers and discharge plan of care as prescribed. Resumption of [facility] services, New RX's are transmitted to [facility]. Ulysses will follow up with his PCP in 1-[address] Leahy on 06/05/22, as scheduled. Outpatient Palliative care consult is ordered. CM also placed a referral to [facility] for information on additional community support and resources. Services Needed at Discharge: DME Agency ([employer], coordinated by PT. Najera, coordinated by RT.), Home Health Care Services (Resumption of [facility] RN/PT/ST, add GANTRY RIGGER. CM notified Jakob at [facility]. )
[2022-05-04] MEDS: cefTRIAXone 2 GM/50 ML BAG IVPB (11:04)
--- NOTE | 2022-05-04 11:10 | OT.INIE ---
Occupational Therapy Notes Inpatient Occupational Therapy Evaluation Date: 05/04/22 Referring Doctor: Dr. Holden OT Orders: Non Urgent Precautions: Fall, Standard, DNR/DNI PATIENT PROFILE/ADMITTING DIAGNOSIS: PT is a 86 year old male who was admitted from the ED for the dx of COPD, ambulatry dysfunction, oropharyngeal dysphagia, hypoxia, CAP, cough, trochanter bursitis, spinal stenosis, elevated PSA, prostate nodule. Past Medical History: All Active Problems?(Updated 05/02/22 @ 17:29 by Yesenia Holden MD) Discharge planning issues (Acute) DVT prophylaxis (Acute) Hypoxia (Acute) CAP (community acquired pneumonia) (Acute) Cough (Acute) History of total left hip replacement (Acute 02/20/22) Tardive dyskinesia (Acute 05/27/13) Trochanteric bursitis (Acute) Spinal stenosis (Acute) Elevated PSA (Acute) Prostate nodule (Acute) Sensorineural hearing loss of both ears (Acute) Medical History?(Updated 05/02/22 @ 17:29 by Yesenia Holden MD) Anxiety Aortic valve stenosis Per 10/05/21 H&P by [facility] PCP Dr. MOSQUERA: ...His murmur has changed today on exam and while he is overall asymptomatic, will obtain a TTE to assess the severity of his As to get a baseline valve area/Chronic obstructive lung disease Depression Essential hypertension Hypothyroidism Osteoarthritis Parkinson disease Polymyalgia rheumatica Polyp of colon Tardive dyskinesia Surgical History?(Updated 04/21/22 @ 09:51 by Samuel Calixto RN) Appendectomy Excision, Pilonidal Cyst History of right cataract surgery 10/14/21Thyroid Social History/Home Situation: Pt lives in a private home with his . He reports that he is (I) at his baseline but per nursing he does need (A). He utilizes hearing aides which he does not have with him. He has false teeth which he states he also does not have with him but he states he is (I) With cleaning them. He reports that he is still driving. His will (A) as needed. He notes that he utilizes a sock aide for one foot but is (I) With his other. Equipment owned/DME: FWW which pt notes is broken, shower seat, grab bars, raised toilet seat SUBJECTIVE: Pt states that he is doing well and waiting for his to arrive this morning. He notes that he is fairly (I) at his baseline and that his does (A) at times. OBJECTIVE: General Observation: Pleasant and agreeable to OT consult, IV in UE, Telemetry Mental Status: A&Ox3 Pain: c/o pain ROM: RUE AROM WFL L UE AROM WFL STRENGTH: RUE 3+/5 throughout functionally LUE 3+/5 throughout functionally FUNCTIONAL MOBILITY/ADLS: BATHING Pt denies DRESSING Dressing LE Pt is (I) with his (R) but requires a sock aid for his (L) due to pain and mobility limitations. BALANCE: Static sitting Normal Dynamic Sitting Normal SPECIAL TESTS: Daily Activity Limitations Standardized Measure [facility] AM -PAC ?6 clicks? Daily Activity Inpatient Short Form: Raw score: 21 INFORMED CONSENT/EDUCATION: Pt instructed in purpose of OT Consult and plan of care. ASSESSMENT: Patient is a 86-year-old male referred to occupational therapy services with diagnosis of COPD, ambulatry dysfunction, oropharyngeal dysphagia, hypoxia, CAP, cough, trochanter bursitis, spinal stenosis, elevated PSA, prostate nodule. Patient presents with clinical signs and symptoms consistent with dx, as demonstrated by the following impairment level findings/functional limitations: Impairments in ADL/IADL and leisure activities, decreased gross and fine motor control, decreased functional activity tolerance. Pt states that his FWW is broke and that he needs a new one. AMPAC score 21 Patient is assessed as a Moderate 85360 complexity based on the following: History: see above Examination: see functional limitations as noted above Presentation: evolving Decision Making: AMPAC score 21 GOALS Seen for OT consult only. PLAN OF CARE/TREATMENT PLAN: Pt is medically cleared and being discharged post todays evaluation. DISCHARGE RECOMMENDATIONS OT recommends home with HH services including Occupational Therapy for assessment of DME needs in the home vs. SNF TREATMENT TIME/MINUTES/CODES 42920, 15 minutes (08:20) JACQUELINE [facility]
--- NOTE | 2022-05-04 12:00 | RESPIRATORY ---
Home nebulizer set up through [facility]. Instruction complete.
== END 2022-05-04 13:05 | disposition home health service (06) | DRG 190 ==
LOC: ER 14:27 → ICU 16:14
PROVIDERS: Admitting Provider Internal Medicine; Emergency Provider Emergency Medicine; PCP Internal Medicine; Visit Provider Internal Medicine
DX: J44.0 Chronic obstructive pulmonary disease with (acute) lower respiratory infection (principal); J18.9 Pneumonia, unspecified organism; J44.1 Chronic obstructive pulmonary disease with (acute) exacerbation; G20 Parkinson's disease; R09.02 Hypoxemia; I35.0 Nonrheumatic aortic (valve) stenosis; Z66 Do not resuscitate; I10 Essential (primary) hypertension; M35.3 Polymyalgia rheumatica; R05.1 Acute cough; Z96.642 Presence of left artificial hip joint; M48.00 Spinal stenosis, site unspecified; N40.2 Nodular prostate without lower urinary tract symptoms; H90.3 Sensorineural hearing loss, bilateral; Z87.891 Personal history of nicotine dependence; R13.12 Dysphagia, oropharyngeal phase
CPT/HCPCS: 36415; 80048; 80053; 84145; 87040; 87637; 92610; 93005; 94618; 94640; 96365; 96367; 96375; 97110; 97162; 97166; 97530; 99285; J1650; 71045; 83735; 84439; 84443; 84484; 85025; 85610; 85730; 93010; 94667; 99223; 99232; 99239; J0456; J1941; J2930; J7512; J7620